=== PATIENT | female | born 1975 | race Caucasian/White ===

== ENCOUNTER 2017-06-28 16:06 | Emergency (ER) | payer SELFPAY ==
[~2017-06-28] VITALS: Ht 154.9 cm; Wt 66.0 kg
[~2017-06-28 16:06] MED LIST: AMIT25TA20 PO; LISI-363 PO; MOBI15TA PO; NEUR600T PO; OXYC1SOL5 PO; OXYC5 PO; TIZA4 PO
[2017-06-28 16:23] VITALS: BP 181/89; PULSE 122; RESP 26; TEMP 98.5; O2SAT 96
[2017-06-28] MEDS ORDERED: SODIUM CHLORIDE 0.9% FLUSH 10 ML FLUSH IVF PRN (16:30)
[2017-06-28 16:36] VITALS: O2SAT 91
--- NOTE | 2017-06-28 16:40 | PD ---
HPI Chief Complaint: OD/ Ingestion Time Seen by Provider: 16:29 Travel History International Travel<30 days: No Contact w/Intl Traveler<30days: No Traveled to known affect area: No History of Present Illness HPI 38-year-old female presents to emergency department after an overdose that occurred just prior to arrival. Patient states that she was driving her car and pulled over to snort heroin. He back found her unresponsive respirations for oxygen saturation of 54%. Patient states that this was the first time using heroin. Denies any other illicit or IV drugs. Patient states that she was on opiates for her chronic neck pain but decided to stop them approximately 6 months ago. 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 Currently patient denies fever, chills, chest pain, she missed of breath, abdominal pain. She has chronic neck pain and describes her pain 5 out of 5 worse with movement. PFSH Past Medical History Arthritis: Yes Cancer: No Cardiovascular Problems: Yes Diabetes: No Endocrine: No Genitourinary: No Hepatitis: No Hiatal Hernia: No Hypertension: Yes Immune Disorder: No Musculoskeletal: Yes ( BACK, NECK AND ARTHRITIS) Neurologic: Yes (NUMBNESS TINGLING LEFT ARM) Psychiatric: No Reproductive: No Respiratory: No Seizures: No Thyroid Disease: No ?: Not Tubal Ligation: Yes Past Surgical History Abdominal Surgery: No Cardiac Surgery: No Gynecologic Surgery: Yes (TUBAL LIGATION) Neurologic Surgery: No Other Surgery: Yes (tibal ligation) Social History Alcohol Use: Yes (OCCASSIONALLY) Tobacco Use: Yes (1/2 PPD) Substance Use: Yes (OPIATES, HEROINE TODAY) Allergies-Medications (Allergen,Severity, Reaction): Coded Allergies: penicillin G (Unverified Allergy, Severe, Anaphylaxis, 06/28/17) Reported Meds & Prescriptions Reported Meds & Active Scripts Active No Active Prescriptions or Reported Medications Review of Systems Except as stated in HPI: all other systems reviewed are Neg Physical Exam Narrative GENERAL: Well-developed well-nourished in mild distress, tearful SKIN: Focused skin assessment warm/dry. HEAD: Atraumatic. Normocephalic. EYES: Pupils equal and round. No scleral icterus. No injection or drainage. ENT: No nasal bleeding or discharge. Mucous membranes pink and moist. NECK: Trachea midline. No JVD. No midline tenderness CARDIOVASCULAR: Regular rate and rhythm. No murmur appreciated. RESPIRATORY: No accessory muscle use. Clear to auscultation. Breath sounds equal bilaterally. GASTROINTESTINAL: Abdomen soft, non-tender, nondistended. Hepatic and splenic margins not palpable. MUSCULOSKELETAL: No obvious deformities. No clubbing. No cyanosis. No edema. NEUROLOGICAL: Awake and alert. No obvious cranial nerve deficits. Motor grossly within normal limits. Normal speech. PSYCHIATRIC: Appropriate mood and affect; insight and judgment normal. Tearful. Data Data Last Documented VS Vital Signs Date Time Temp Pulse Resp B/P (MAP) Pulse Ox O2 Delivery O2 Flow Rate FiO2 06/28/17 20:57 06/28/17 19:45 110 14 98 Room Air 06/28/17 18:59 2.00 06/28/17 16:23 98.5 Orders Orders Complete Blood Count With Diff (06/28/17 16:30) Comprehensive Metabolic Panel (06/28/17 16:30) Urinalysis - C+S If Indicated (06/28/17 16:30) Chest, Single Ap (06/28/17 16:30) Iv Access Insert/Monitor (06/28/17 16:30) Ecg Monitoring (06/28/17 16:30) Oximetry (06/28/17 16:30) Sodium Chloride 0.9% Flush (Ns Flush) (06/28/17 16:30) Drug Screen, Random Urine (06/28/17 16:30) Alcohol (Ethanol) (06/28/17 16:30) Sodium Chlor 0.9% 1000 Ml Inj (Ns 1000 M (06/28/17 16:45) Ed Discharge Order (06/28/17 20:48) Labs Laboratory Tests Test 06/28/17 16:30 06/28/17 18:20 White Blood Count 6.2 TH/MM3 Red Blood Count 4.49 MIL/MM3 Hemoglobin 13.9 GM/DL Hematocrit 40.0 % Mean Corpuscular Volume 89.2 FL Mean Corpuscular Hemoglobin 30.9 PG Mean Corpuscular Hemoglobin Concent 34.7 % Red Cell Distribution Width 13.2 % Platelet Count 220 TH/MM3 Mean Platelet Volume 7.9 FL Neutrophils (%) (Auto) 61.7 % Lymphocytes (%) (Auto) 31.5 % Monocytes (%) (Auto) 4.8 % Eosinophils (%) (Auto) 1.1 % Basophils (%) (Auto) 0.9 % Neutrophils # (Auto) 3.8 TH/MM3 Lymphocytes # (Auto) 2.0 TH/MM3 Monocytes # (Auto) 0.3 TH/MM3 Eosinophils # (Auto) 0.1 TH/MM3 Basophils # (Auto) 0.1 TH/MM3 CBC Comment DIFF FINAL Differential Comment Blood Urea Nitrogen 20 MG/DL Creatinine 0.93 MG/DL Random Glucose 111 MG/DL Total Protein 7.5 GM/DL Albumin 3.8 GM/DL Calcium Level 8.8 MG/DL Alkaline Phosphatase 121 U/L Aspartate Amino Transf (AST/SGOT) 44 U/L Alanine Aminotransferase (ALT/SGPT) 59 U/L Total Bilirubin 0.3 MG/DL Sodium Level 141 MEQ/L Potassium Level 4.1 MEQ/L Chloride Level 109 MEQ/L Carbon Dioxide Level 26.8 MEQ/L Anion Gap 5 MEQ/L Estimat Glomerular Filtration Rate 66 ML/MIN Ethyl Alcohol Level 3 MG/DL Urine Color YELLOW Urine Turbidity CLEAR Urine pH 5.5 Urine Specific [place] 1.027 Urine Protein TRACE mg/dL Urine Glucose (UA) NEG mg/dL Urine Ketones NEG mg/dL Urine Occult Blood NEG Urine Nitrite NEG Urine Bilirubin NEG Urine Urobilinogen LESS THAN 2.0 MG/DL Urine Leukocyte Esterase NEG Urine RBC LESS THAN 1 /hpf Urine WBC 1 /hpf Urine Bacteria RARE /hpf Urine Hyaline Casts 33 /lpf Urine Mucus MANY /lpf Microscopic Urinalysis Comment CULT NOT INDICATED Urine Opiates Screen POS Urine Barbiturates Screen POS Urine Amphetamines Screen NEG Urine Benzodiazepines Screen POS Urine Cocaine Screen POS Urine Cannabinoids Screen NEG MDM Medical Decision Making Medical Screen Exam Complete: Yes Emergency Medical Condition: Yes Differential Diagnosis Overdose, suicidal ideations, MVC, drug abuse Narrative Course 38-year-old female presents to emergency department after an overdose that occurred just prior to arrival. Patient states that she was driving her car and pulled over to snort heroin. He back found her unresponsive respirations for oxygen saturation of 54%. Patient states that this was the first time using heroin. Denies any other illicit or IV drugs. Patient states that she was on opiates for her chronic neck pain but decided to stop them approximately 6 months ago. 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 Currently patient denies fever, chills, chest pain, she missed of breath, abdominal pain. She has chronic neck pain and describes her pain 5 out of 5 worse with movement. Upon arrival, pt was A+Ox3. Vital signs stable Laboratory Tests Test 06/28/17 16:30 06/28/17 18:20 White Blood Count 6.2 TH/MM3 Red Blood Count 4.49 MIL/MM3 Hemoglobin 13.9 GM/DL Hematocrit 40.0 % Mean Corpuscular Volume 89.2 FL Mean Corpuscular Hemoglobin 30.9 PG Mean Corpuscular Hemoglobin Concent 34.7 % Red Cell Distribution Width 13.2 % Platelet Count 220 TH/MM3 Mean Platelet Volume 7.9 FL Neutrophils (%) (Auto) 61.7 % Lymphocytes (%) (Auto) 31.5 % Monocytes (%) (Auto) 4.8 % Eosinophils (%) (Auto) 1.1 % Basophils (%) (Auto) 0.9 % Neutrophils # (Auto) 3.8 TH/MM3 Lymphocytes # (Auto) 2.0 TH/MM3 Monocytes # (Auto) 0.3 TH/MM3 Eosinophils # (Auto) 0.1 TH/MM3 Basophils # (Auto) 0.1 TH/MM3 CBC Comment DIFF FINAL Differential Comment Blood Urea Nitrogen 20 MG/DL Creatinine 0.93 MG/DL Random Glucose 111 MG/DL Total Protein 7.5 GM/DL Albumin 3.8 GM/DL Calcium Level 8.8 MG/DL Alkaline Phosphatase 121 U/L Aspartate Amino Transf (AST/SGOT) 44 U/L Alanine Aminotransferase (ALT/SGPT) 59 U/L Total Bilirubin 0.3 MG/DL Sodium Level 141 MEQ/L Potassium Level 4.1 MEQ/L Chloride Level 109 MEQ/L Carbon Dioxide Level 26.8 MEQ/L Anion Gap 5 MEQ/L Estimat Glomerular Filtration Rate 66 ML/MIN Ethyl Alcohol Level 3 MG/DL Urine Color YELLOW Urine Turbidity CLEAR Urine pH 5.5 Urine Specific [place] 1.027 Urine Protein TRACE mg/dL Urine Glucose (UA) NEG mg/dL Urine Ketones NEG mg/dL Urine Occult Blood NEG Urine Nitrite NEG Urine Bilirubin NEG Urine Urobilinogen LESS THAN 2.0 MG/DL Urine Leukocyte Esterase NEG Urine RBC LESS THAN 1 /hpf Urine WBC 1 /hpf Urine Bacteria RARE /hpf Urine Hyaline Casts 33 /lpf Urine Mucus MANY /lpf Microscopic Urinalysis Comment CULT NOT INDICATED Urine Opiates Screen POS Urine Barbiturates Screen POS Urine Amphetamines Screen NEG Urine Benzodiazepines Screen POS Urine Cocaine Screen POS Urine Cannabinoids Screen NEG UDS positive for opiates, barbiturates, benzos, and cocaine. Cocaine does explain the tachycardia. Labs otherwise stable. Last Impressions Chest X-Ray 06/28/17 1630 Signed Impressions: Service Date/Time: June 16:40 - CONCLUSION: 1. No acute cardiopulmonary disease. Dusty Carmen MD Reassessment demonstrates lethargy, sleepiness. Hypoxia and tachycardia occurs. Patient will remain in the emergency department until stable. 1946- Pt requests to go home. Pt stated she has a girlfriend who can pick her up. Vital signs stable. Patient is slightly tachycardic at 108. Again there is evidence of cocaine use. Patient denies chest pain, shortness of breath, or pain anywhere else. She understands the importance of follow-up with a primary care physician. She understands she needs return to emergency department for persistent or worsening symptoms. States she understands and will comply with directions. Diagnosis Primary Impression: Heroin overdose Qualified Codes: T40.1X1A - Poisoning by heroin, accidental (unintentional), initial encounter Additional Impression: Cocaine use Referrals: [facility] Additional Instructions: Follow-up with primary care physician within 2-3 days. Avoid heroin and other illicit drugs as they may cause . Also consider following up with a psychiatrist for evaluation of your drug use. Scripts No Active Prescriptions or Reported Meds Disposition: 01 DISCHARGE HOME Condition: Stable Tracie Yanez Jun 28, 2017 16:40
[2017-06-28] MEDS ORDERED: SODIUM CHLOR 0.9% 1000 ML INJ 1,000 ML IV ONE (16:45)
--- NOTE | 2017-06-28 16:52 | RADRPT ---
EXAM DATE/TIME: 06/28/2017 16:40 [facility] COMPARISON: No previous studies available for comparison. INDICATIONS : Possible syncopal episode; possible overdose. MEDICAL HISTORY : None. SURGICAL HISTORY : None. ENCOUNTER: Initial ACUITY: 1 day PAIN SCORE: 0/10 LOCATION: Bilateral chest FINDINGS: A single view of the chest demonstrates the lungs to be symmetrically aerated without evidence of mas s, infiltrate or effusion. The cardiomediastinal contours are unremarkable. Fixation hardware in the lower cervical spine. Osseous structures are intact. CONCLUSION: 1. No acute cardiopulmonary disease. Dusty Carmen MD on June 28, 2017 at 16:50 Board Certified Radiologist. This report was verified electronically.
[2017-06-28 17:11] LABS: AUTOMATED NEUTROPHIL # 3.8 TH/MM3 (1.8-7.7); BASOPHIL # 0.1 TH/MM3 (0-0.2); BASOPHIL % 0.9 % (0.0-2.0); EOSINOPHIL # 0.1 TH/MM3 (0-0.4); EOSINOPHIL % 1.1 % (0.0-4.0); HEMO FLAGS DIFF FINAL; LYMPH % 31.5 % (9.0-44.0); MEAN CELL VOLUME 89.2 FL (80.0-100.0); MEAN CORPUSCULAR HEMOGLOBIN 30.9 PG (27.0-34.0); MEAN CORPUSCULAR HGB CONC 34.7 % (32.0-36.0); MONO % 4.8 % (0.0-8.0); NEUT % 61.7 % (16.0-70.0); PLATELET COUNT 220 TH/MM3 (150-450); RED BLOOD COUNT 4.49 MIL/MM3 (4.00-5.30); RED CELL DISTRIBUTION WIDTH 13.2 % (11.6-17.2); WHITE BLOOD COUNT 6.2 TH/MM3 (4.0-11.0)
[2017-06-28 17:17] LABS: ANION GAP 5 MEQ/L (5-15); AST (GOT) 44 U/L (15-37); BICARBONATE 26.8 MEQ/L (21.0-32.0); BLOOD UREA NITROGEN 20 MG/DL (7-18); CHLORIDE 109 MEQ/L (98-107); GLOMERULAR FILTRATION RATE 66 ML/MIN (>89); POTASSIUM 4.1 MEQ/L (3.5-5.1); SODIUM (NA) 141 MEQ/L (136-145)
[2017-06-28 17:18] LABS: ALT (GPT) 59 U/L (10-53)
[2017-06-28 17:20] LABS: ALKALINE PHOSPHATASE 121 U/L (45-117); TOTAL BILIRUBIN ADULT 0.3 MG/DL (0.2-1.0)
[2017-06-28 17:21] LABS: ALCOHOL 3 MG/DL (0-5)
[2017-06-28 18:03] VITALS: BP 147/92; PULSE 103; RESP 10; RESP 16; O2SAT 92
[2017-06-28 18:46] LABS: BACTERIA, URINE RARE /hpf; BLOOD, URINE NEG (NEG); COMMENT (UR) CULT NOT INDICATED; CULTURE IF INDICATED CULT NOT INDICATED; GLUCOSE,URINE NEG (NEG); HYALINE CAST, URINE 33 /lpf (RARE); KETONE, URINE NEG (NEG); MUCUS URINE MANY /lpf (OCC); NITRITE,URINE NEG (NEG); PH, URINE 5.5 (5.0-8.5); URINE COLOR YELLOW (YELLW/STRAW)
[2017-06-28 18:57] VITALS: BP 158/101; PULSE 105; RESP 14; O2SAT 95
[2017-06-28 19:45] VITALS: BP 152/95; PULSE 110; RESP 14; O2SAT 98
== END 2017-06-28 21:05 | disposition home or self-care (01) ==
LOC: NEPE 16:06
DX: T40.1X1A Poisoning by heroin, accidental (unintentional), initial encounter (principal); F14.90 Cocaine use, unspecified, uncomplicated; I10 Essential (primary) hypertension; M46.92 Unspecified inflammatory spondylopathy, cervical region; F17.210 Nicotine dependence, cigarettes, uncomplicated
CPT/HCPCS: 71010; 80053; 80307; 81001; 85025; 99285; J7030

== ENCOUNTER 2018-05-05 19:02 | Inpatient (IN) ==
[2018-05-05] MEDS ORDERED: Naloxone Inj 0.4 MG/ML Vial ONE (19:25)
[2018-05-05] MEDS ORDERED: Naloxone Inj 2 MG/2 ML Vial IV.PUSH ONE (19:29)
[2018-05-05 19:57] LABS: Baso % (Auto) 0.5 % (0.0-2.0); Eos % (Auto) 0.2 % (0.0-4.0); Hematocrit 43.3 % (35.0-46.0); Hemoglobin 14.2 gm/dL (11.6-15.3); Lymph # (Auto) 0.8 th/mm3 (1.0-4.8); Lymph % (Auto) 8.6 % (9.0-44.0); Mean Corpuscular HGB Conc 32.8 % (32.0-36.0); Mean Corpuscular Volume 94.4 fL (80.0-100.0); Mean Platelet Volume 8.2 fL (7.0-11.0); Mono # (Auto) 0.6 th/mm3 (0.0-0.9); Mono % (Auto) 6.1 % (0.0-8.0); Neut # (Auto) 8.2 th/mm3 (1.8-7.7); Neut % (Auto) 84.6 % (16.0-70.0); Platelet Count 215 th/mm3 (150-450); Red Blood Count 4.58 mil/mm3 (4.00-5.30); Red Cell Distribution Width 13.6 % (11.6-17.2); White Blood Count 9.7 th/mm3 (4.0-11.0)
--- NOTE | 2018-05-05 20:04 | XR ---
EXAM DATE: 05/05/2018 7:29 PM EDT AGE/SEX: 42 years / Female INDICATIONS: Dyspnea. CLINICAL DATA: This is the patient's initial encounter. Patient reports that signs and symptoms have been present for 1 day and indicates a pain score of 0/10. MEDICAL/SURGICAL HISTORY: None. None. COMPARISON: [facility] [place], CHEST SINGLE AP, 06/28/2017. . FINDINGS: Lungs are under aerated. Mild interstitial edema is present. There is no pneumothorax or pleural effu ghazala. Mild gaseous distention of the stomach. CONCLUSION: Under aerated with mild interstitial edema. Electronically signed by: Juan Stephenson MD 05/05/2018 8:03 PM EDT
[2018-05-05 20:09] LABS: Anion Gap 13 meq/L (5-15)
[2018-05-05 20:11] LABS: Alanine Aminotransferase 83 U/L (10-53); Albumin 4.3 g/dL (3.4-5.0); Aspartate Aminotransferase 143 U/L (15-37); Blood Urea Nitrogen 25 mg/dL (7-18); Chloride 103 meq/L (98-107); Glomerular Filtration Rate 20 mL/min (>89); Glucose,Random 116 mg/dL (74-106); Sodium 142 meq/L (136-145)
[2018-05-05 20:19] LABS: Alkaline Phosphatase 151 U/L (45-117); Total Protein 8.5 g/dL (6.4-8.2)
[2018-05-05] MEDS ORDERED: Sod Chloride 0.9% Inj 1,000 ML IV.SIG SCH ×3 (20:30→21:00)
[2018-05-05 20:43] LABS: ABG Base Excess -3.4 mmol/L (-2-2); ABG PCO2 56 mmHg (38-42); ABG PO2 78 mmHg (61-120)
[2018-05-05 20:50] LABS: Creatine Kinase 2351 U/L (26-192)
[2018-05-05 21:02] LABS: CKMB Percent 0.9 % (0.0-4.0); Creatine Kinase MB 21.5 ng/mL (0.5-3.6)
--- NOTE | 2018-05-05 21:03 | ED ---
HPI General Chief complaint: Overdose Stated complaint: Psych Eval-VCSO Time Seen by Provider: 05/05/18 19:25 Source: EMS Mode of arrival: EMS Limitations: altered mental status History of Present Illness HPI narrative: 42-year-old female came to the emergency room with history of being found unresponsive on her couch with emesis around by her mother. As per the mother patient has history of overdose in the past. When the police arrived patient was altered mental status and groggy. She was refusing any medical care. Based on this health officer Sirena acted her. EMS brought her in. Patient had admitted to overdose on heroin, cocaine and Xanax. Patient did not receive any medications en route. Her oxygen saturation was 84% on room air upon arrival. Upon putting nasal cannula it went up to mid 90s. Patient try to answer my question again being quite lethargic. She was not making too much sense and words were incomprehensible. No family is around her. Onset (ago): unknown Related Data Home Medications Medication Instructions Recorded Confirmed No Known Home Medications 05/05/18 05/05/18 Unable to Obtain Home Meds 05/05/18 05/05/18 Allergies Allergy/AdvReac Type Severity Reaction Status Date / Time penicillin G Allergy Severe Anaphylaxis Unverified 06/28/17 16:29 Review of Systems ROS Unobtainable ROS Unobtainable: unobtainable due to mental status ROS: all other systems reviewed are negative Psychiatric Reports depression [facility] Medical History Medical History Medical history unknown (Acute) Surgical history unknown (Acute) Social History Social History Substance History: Active Abuse Second Hand Smoke Exposure: Yes Smoking Status: Current every day smoker Tobacco Type: Cigarettes How Often Do You Have a Drink Containing Alcohol: 4 or more times a week Recent Travel in [facility] within the Last 8 Weeks: No Recent Out of Country Travel within the Last 8 Weeks: No Substance Abuse Detail Opiates: Substance Use Status: Active Immunization History Tetanus Immunization: >5 Years Exam Narrative Exam Narrative: GENERAL: Lethargic, extremely slurred speech, moderate distress SKIN: Focused skin assessment warm/dry. HEAD: Atraumatic. Normocephalic. EYES: Pupils equal and round. No scleral icterus. No injection or drainage. ENT: No nasal bleeding or discharge. Dry mucous membranes NECK: Trachea midline. No JVD. CARDIOVASCULAR: Regular rate and rhythm. No murmur appreciated. RESPIRATORY: No accessory muscle use. Clear to auscultation. Breath sounds equal bilaterally. GASTROINTESTINAL: Abdomen soft, non-tender, nondistended. Hepatic and splenic margins not palpable. MUSCULOSKELETAL: No obvious deformities. No clubbing. No cyanosis. No edema. NEUROLOGICAL: Awake and alert. No obvious cranial nerve deficits. Motor grossly within normal limits. Normal speech. PSYCHIATRIC: Appropriate mood and affect; insight and judgment normal. Course Reevaluation(s) Reevaluation #1: Patient was given 1 mg of Narcan that aroused her slightly. She was still quite groggy. But she was answering questions a little more appropriately at this point. She said that she had snorted heroin, cocaine and Xanax today. Upon asking the purpose of doing this she said it was intentional since she has been very sad. Her father and her brother both 1 week apart on August. The pulse ox was difficult to obtain and I asked the respiratory therapist for a blood gas. The blood gas is suggestive of respiratory acidosis. Based on this I have ordered BiPAP. Blood test otherwise shows acute renal failure and rhabdomyolysis. I have ordered 2 L of IV fluid bolus at this point. Patient given these multiple critical issues should go to the ICU in my opinion. Awaiting for the cutting table operator first to call back. Time: 20:59 Initial Documented Vital Signs Temperature 98.4 F 05/05/18 19:29 Pulse Rate 86 05/05/18 19:29 Respiratory Rate 14 05/05/18 19:29 Blood Pressure 112/78 05/05/18 19:29 Pulse Oximetry 86 L 05/05/18 19:29 Last Documented Vital Signs Temperature 98.0 F 05/09/18 08:00 Pulse Rate 81 05/09/18 10:00 Respiratory Rate 23 05/09/18 08:00 Blood Pressure 149/77 H 05/09/18 08:00 Pulse Oximetry 93 L 05/09/18 08:00 Critical Care Time Critical Care Time: Yes Total Critical Care Time: 45 Attestation: Aggregate critical care time was 45 minutes. Time to perform other separately billable procedures was not included in the critical care time. My time did not include minutes spent treating any other patients simultaneously or on activities that did not directly contribute to the patient's treatment. The services I provided to this patient were to treat and/or prevent clinically significant deterioration that could result in: Respiratory depression, altered mental status, polysubstance abuse, major depression, acute renal failure, rhabdomyolysis I provided critical care services requiring my management, as noted below: Chart data review, documentation time, medication orders and management, vital sign assessments/reviewing monitor data, ordering and reviewing lab tests, ordering and interpreting/reviewing x-rays and diagnostic studies, care of the patient and discussion of the patient with the admitting physicians. Medical Decision Making MDM Narrative Medical decision making narrative: Awaiting to speak with the cutting table operator first. Medical Screen Exam Complete: Yes Emergency Medical Condition: Yes Lab Data Result diagrams: 05/08/18 05:45 05/09/18 03:30 Lab Results 05/05/18 05/05/18 05/05/18 Range/Units 19:45 19:45 19:45 WBC 9.7 (4.0-11.0) th/mm3 RBC 4.58 (4.00-5.30) mil/mm3 Hgb 14.2 (11.6-15.3) gm/dL Hct 43.3 (35.0-46.0) % MCV 94.4 (80.0-100.0) fL MCH 31.0 (27.0-34.0) pg MCHC 32.8 (32.0-36.0) % RDW 13.6 (11.6-17.2) % Plt Count 215 (150-450) th/mm3 MPV 8.2 (7.0-11.0) fL Neut % (Auto) 84.6 H (16.0-70.0) % Lymph % (Auto) 8.6 L (9.0-44.0) % Forrest % (Auto) 6.1 (0.0-8.0) % Eos % (Auto) 0.2 (0.0-4.0) % Baso % (Auto) 0.5 (0.0-2.0) % Neut # (Auto) 8.2 H (1.8-7.7) th/mm3 Lymph # (Auto) 0.8 L (1.0-4.8) th/mm3 Forrest # (Auto) 0.6 (0.0-0.9) th/mm3 Eos # (Auto) 0.0 (0.0-0.4) th/mm3 Baso # (Auto) 0.0 (0.0-0.2) th/mm3 WBC Differential . Differential Comment Auto diff final D-Dimer Quant (PE/DVT) (0.00-0.50) mg/L FEU Puncture Site Patient Temperature O2 Saturation (90-100) % ABG pH (7.380-7.420) ABG pCO2 (38-42) mmHg ABG pO2 (61-120) mmHg ABG HCO3 (22-26) mmol/L ABG O2 Content (12.0-20.0) Vol % ABG Base Excess (-2-2) mmol/L ABG Methemoglobin (0-2) % Hemoglobin (12.0-16.0) G/DL Carboxyhemoglobin (0-4) % O2 Delivery Device Liter Flow L/M Critical Value Sodium 142 (136-145) meq/L Potassium 5.0 (3.5-5.1) meq/L Chloride 103 (98-107) meq/L Carbon Dioxide 26.0 (21.0-32.0) meq/L Anion Gap 13 (5-15) meq/L BUN 25 H (7-18) mg/dL Creatinine 2.60 H (0.50-1.00) mg/dL Estimated GFR 20 L (>89) mL/min Random Glucose 116 H (74-106) mg/dL Hemoglobin A1c (4.3-6.0) % Lactic Acid (0.4-2.0) mmol/L Calcium 9.0 (8.5-10.1) mg/dL Phosphorus (2.5-4.9) mg/dL Magnesium (1.5-2.5) mg/dL Total Bilirubin 0.3 (0.2-1.0) mg/dL AST 143 H (15-37) U/L ALT 83 H (10-53) U/L Alkaline Phosphatase 151 H (45-117) U/L Total Creatine Kinase (26-192) U/L CK-MB (CK-2) (0.5-3.6) ng/mL CK-MB (CK-2) % (0.0-4.0) % Troponin I (0.02-0.05) ng/mL Total Protein 8.5 H (6.4-8.2) g/dL Albumin 4.3 (3.4-5.0) g/dL TSH 3.080 (0.358-3.740) uIU/mL Free T4 (0.76-1.46) ng/dL Beta HCG, Qual Less than 1.0 (0-5) mIU/mL Urine Color (Yellw/Straw) Urine Clarity (Clear) Urine pH (5.0-8.5) Ur Specific [place] (1.002-1.035) Urine Protein (Neg-Trace) mg/dL Urine Glucose (UA) (Negative) mg/dL Urine Ketones (Negative) mg/dL Urine Occult Blood (Negative) Urine Nitrate (Negative) Urine Bilirubin (Negative) Urine Urobilinogen (Less than 2) mg/dL Ur Leukocyte Esterase (Negative) Urine RBC (0-3) /hpf Urine WBC (0-5) /hpf Ur Squamous Epith Cells (0-5) /hpf Amorphous Sediment (None) /hpf Hyaline Casts (0-3) /lpf Urine Mucus (Occasional) /lpf Micro UA Comment Ur Microscopic Review Urine Culture Comments Nasal Screen MRSA (PCR) (Negative) Salicylates 2.5 L (2.8-20.0) mg/dL Urine Opiates Screen (Neg) Acetaminophen Less than 2.0 L (10.0-30.0) mcg/mL Ur Barbiturates Screen (Neg) Ur Amphetamines Screen (Neg) U Benzodiazepines Scrn (Neg) Urine Cocaine Screen (Neg) U Cannabinoids Screen (Neg) Serum Alcohol Less than 3 (0-5) mg/dL 05/05/18 05/05/18 05/05/18 Range/Units 19:45 20:23 20:35 WBC (4.0-11.0) th/mm3 RBC (4.00-5.30) mil/mm3 Hgb (11.6-15.3) gm/dL Hct (35.0-46.0) % MCV (80.0-100.0) fL MCH (27.0-34.0) pg MCHC (32.0-36.0) % RDW (11.6-17.2) % Plt Count (150-450) th/mm3 MPV (7.0-11.0) fL Neut % (Auto) (16.0-70.0) % Lymph % (Auto) (9.0-44.0) % Forrest % (Auto) (0.0-8.0) % Eos % (Auto) (0.0-4.0) % Baso % (Auto) (0.0-2.0) % Neut # (Auto) (1.8-7.7) th/mm3 Lymph # (Auto) (1.0-4.8) th/mm3 Forrest # (Auto) (0.0-0.9) th/mm3 Eos # (Auto) (0.0-0.4) th/mm3 Baso # (Auto) (0.0-0.2) th/mm3 WBC Differential Differential Comment D-Dimer Quant (PE/DVT) 4.24 H (0.00-0.50) mg/L FEU Puncture Site Right brachial Patient Temperature 98.6 O2 Saturation 92 (90-100) % ABG pH 7.24 L* (7.380-7.420) ABG pCO2 56 H* (38-42) mmHg ABG pO2 78 (61-120) mmHg ABG HCO3 23 (22-26) mmol/L ABG O2 Content 17.7 (12.0-20.0) Vol % ABG Base Excess -3.4 L (-2-2) mmol/L ABG Methemoglobin 0.9 (0-2) % Hemoglobin 13.7 (12.0-16.0) G/DL Carboxyhemoglobin 2.5 (0-4) % O2 Delivery Device Nasal cannula Liter Flow 2.00 L/M Critical Value Yes Sodium (136-145) meq/L Potassium (3.5-5.1) meq/L Chloride (98-107) meq/L Carbon Dioxide (21.0-32.0) meq/L Anion Gap (5-15) meq/L BUN (7-18) mg/dL Creatinine (0.50-1.00) mg/dL Estimated GFR (>89) mL/min Random Glucose (74-106) mg/dL Hemoglobin A1c (4.3-6.0) % Lactic Acid (0.4-2.0) mmol/L Calcium (8.5-10.1) mg/dL Phosphorus (2.5-4.9) mg/dL Magnesium (1.5-2.5) mg/dL Total Bilirubin (0.2-1.0) mg/dL AST (15-37) U/L ALT (10-53) U/L Alkaline Phosphatase (45-117) U/L Total Creatine Kinase 2351 H (26-192) U/L CK-MB (CK-2) 21.5 H (0.5-3.6) ng/mL CK-MB (CK-2) % 0.9 (0.0-4.0) % Troponin I Less than 0.02 L (0.02-0.05) ng/mL Total Protein (6.4-8.2) g/dL Albumin (3.4-5.0) g/dL TSH (0.358-3.740) uIU/mL Free T4 (0.76-1.46) ng/dL Beta HCG, Qual (0-5) mIU/mL Urine Color (Yellw/Straw) Urine Clarity (Clear) Urine pH (5.0-8.5) Ur Specific [place] (1.002-1.035) Urine Protein (Neg-Trace) mg/dL Urine Glucose (UA) (Negative) mg/dL Urine Ketones (Negative) mg/dL Urine Occult Blood (Negative) Urine Nitrate (Negative) Urine Bilirubin (Negative) Urine Urobilinogen (Less than 2) mg/dL Ur Leukocyte Esterase (Negative) Urine RBC (0-3) /hpf Urine WBC (0-5) /hpf Ur Squamous Epith Cells (0-5) /hpf Amorphous Sediment (None) /hpf Hyaline Casts (0-3) /lpf Urine Mucus (Occasional) /lpf Micro UA Comment Ur Microscopic Review Urine Culture Comments Nasal Screen MRSA (PCR) (Negative) Salicylates (2.8-20.0) mg/dL Urine Opiates Screen (Neg) Acetaminophen (10.0-30.0) mcg/mL Ur Barbiturates Screen (Neg) Ur Amphetamines Screen (Neg) U Benzodiazepines Scrn (Neg) Urine Cocaine Screen (Neg) U Cannabinoids Screen (Neg) Serum Alcohol (0-5) mg/dL 05/05/18 05/05/18 05/05/18 Range/Units 21:44 21:44 22:52 WBC (4.0-11.0) th/mm3 RBC (4.00-5.30) mil/mm3 Hgb (11.6-15.3) gm/dL Hct (35.0-46.0) % MCV (80.0-100.0) fL MCH (27.0-34.0) pg MCHC (32.0-36.0) % RDW (11.6-17.2) % Plt Count (150-450) th/mm3 MPV (7.0-11.0) fL Neut % (Auto) (16.0-70.0) % Lymph % (Auto) (9.0-44.0) % Forrest % (Auto) (0.0-8.0) % Eos % (Auto) (0.0-4.0) % Baso % (Auto) (0.0-2.0) % Neut # (Auto) (1.8-7.7) th/mm3 Lymph # (Auto) (1.0-4.8) th/mm3 Forrest # (Auto) (0.0-0.9) th/mm3 Eos # (Auto) (0.0-0.4) th/mm3 Baso # (Auto) (0.0-0.2) th/mm3 WBC Differential Differential Comment D-Dimer Quant (PE/DVT) (0.00-0.50) mg/L FEU Puncture Site Patient Temperature O2 Saturation (90-100) % ABG pH (7.380-7.420) ABG pCO2 (38-42) mmHg ABG pO2 (61-120) mmHg ABG HCO3 (22-26) mmol/L ABG O2 Content (12.0-20.0) Vol % ABG Base Excess (-2-2) mmol/L ABG Methemoglobin (0-2) % Hemoglobin (12.0-16.0) G/DL Carboxyhemoglobin (0-4) % O2 Delivery Device Liter Flow L/M Critical Value Sodium (136-145) meq/L Potassium (3.5-5.1) meq/L Chloride (98-107) meq/L Carbon Dioxide (21.0-32.0) meq/L Anion Gap (5-15) meq/L BUN (7-18) mg/dL Creatinine (0.50-1.00) mg/dL Estimated GFR (>89) mL/min Random Glucose (74-106) mg/dL Hemoglobin A1c (4.3-6.0) % Lactic Acid (0.4-2.0) mmol/L Calcium (8.5-10.1) mg/dL Phosphorus (2.5-4.9) mg/dL Magnesium (1.5-2.5) mg/dL Total Bilirubin (0.2-1.0) mg/dL AST (15-37) U/L ALT (10-53) U/L Alkaline Phosphatase (45-117) U/L Total Creatine Kinase (26-192) U/L CK-MB (CK-2) (0.5-3.6) ng/mL CK-MB (CK-2) % (0.0-4.0) % Troponin I (0.02-0.05) ng/mL Total Protein (6.4-8.2) g/dL Albumin (3.4-5.0) g/dL TSH (0.358-3.740) uIU/mL Free T4 (0.76-1.46) ng/dL Beta HCG, Qual (0-5) mIU/mL Urine Color Yellow (Yellw/Straw) Urine Clarity Hazy H (Clear) Urine pH 5.0 (5.0-8.5) Ur Specific [place] 1.019 (1.002-1.035) Urine Protein 100 H (Neg-Trace) mg/dL Urine Glucose (UA) Negative (Negative) mg/dL Urine Ketones Trace H (Negative) mg/dL Urine Occult Blood Large H (Negative) Urine Nitrate Negative (Negative) Urine Bilirubin Negative (Negative) Urine Urobilinogen Less than 2 (Less than 2) mg/dL Ur Leukocyte Esterase Negative (Negative) Urine RBC 4 H (0-3) /hpf Urine WBC 5 (0-5) /hpf Ur Squamous Epith Cells 1 (0-5) /hpf Amorphous Sediment Few H (None) /hpf Hyaline Casts 3 (0-3) /lpf Urine Mucus Few H (Occasional) /lpf Micro UA Comment Cath-culture not ind Ur Microscopic Review Not Reportable Urine Culture Comments Cath-cult not ind Nasal Screen MRSA (PCR) Not detected (Negative) Salicylates (2.8-20.0) mg/dL Urine Opiates Screen Neg (Neg) Acetaminophen (10.0-30.0) mcg/mL Ur Barbiturates Screen Neg (Neg) Ur Amphetamines Screen Neg (Neg) U Benzodiazepines Scrn Pos H (Neg) Urine Cocaine Screen Pos H (Neg) U Cannabinoids Screen Neg (Neg) Serum Alcohol (0-5) mg/dL 05/06/18 05/06/18 05/06/18 Range/Units 04:38 04:38 04:38 WBC 8.2 (4.0-11.0) th/mm3 RBC 4.01 (4.00-5.30) mil/mm3 Hgb 12.7 (11.6-15.3) gm/dL Hct 37.2 (35.0-46.0) % MCV 92.8 (80.0-100.0) fL MCH 31.7 (27.0-34.0) pg MCHC 34.2 (32.0-36.0) % RDW 13.6 (11.6-17.2) % Plt Count 166 (150-450) th/mm3 MPV 8.2 (7.0-11.0) fL Neut % (Auto) 79.7 H (16.0-70.0) % Lymph % (Auto) 13.6 (9.0-44.0) % Forrest % (Auto) 6.4 (0.0-8.0) % Eos % (Auto) 0.0 (0.0-4.0) % Baso % (Auto) 0.3 (0.0-2.0) % Neut # (Auto) 6.6 (1.8-7.7) th/mm3 Lymph # (Auto) 1.1 (1.0-4.8) th/mm3 Forrest # (Auto) 0.5 (0.0-0.9) th/mm3 Eos # (Auto) 0.0 (0.0-0.4) th/mm3 Baso # (Auto) 0.0 (0.0-0.2) th/mm3 WBC Differential . Differential Comment Auto diff final D-Dimer Quant (PE/DVT) (0.00-0.50) mg/L FEU Puncture Site Patient Temperature O2 Saturation (90-100) % ABG pH (7.380-7.420) ABG pCO2 (38-42) mmHg ABG pO2 (61-120) mmHg ABG HCO3 (22-26) mmol/L ABG O2 Content (12.0-20.0) Vol % ABG Base Excess (-2-2) mmol/L ABG Methemoglobin (0-2) % Hemoglobin (12.0-16.0) G/DL Carboxyhemoglobin (0-4) % O2 Delivery Device Liter Flow L/M Critical Value Sodium 140 (136-145) meq/L Potassium 4.9 (3.5-5.1) meq/L Chloride 110 H (98-107) meq/L Carbon Dioxide 24.6 (21.0-32.0) meq/L Anion Gap 5 (5-15) meq/L BUN 18 (7-18) mg/dL Creatinine 1.08 H (0.50-1.00) mg/dL Estimated GFR 55 L (>89) mL/min Random Glucose 103 (74-106) mg/dL Hemoglobin A1c (4.3-6.0) % Lactic Acid 1.2 (0.4-2.0) mmol/L Calcium 7.6 L D (8.5-10.1) mg/dL Phosphorus (2.5-4.9) mg/dL Magnesium (1.5-2.5) mg/dL Total Bilirubin 0.2 (0.2-1.0) mg/dL AST 240 H (15-37) U/L ALT 93 H (10-53) U/L Alkaline Phosphatase 92 (45-117) U/L Total Creatine Kinase 7321 H (26-192) U/L CK-MB (CK-2) 117.6 H (0.5-3.6) ng/mL CK-MB (CK-2) % 1.6 (0.0-4.0) % Troponin I (0.02-0.05) ng/mL Total Protein 6.4 D (6.4-8.2) g/dL Albumin 3.5 D (3.4-5.0) g/dL TSH (0.358-3.740) uIU/mL Free T4 (0.76-1.46) ng/dL Beta HCG, Qual (0-5) mIU/mL Urine Color (Yellw/Straw) Urine Clarity (Clear) Urine pH (5.0-8.5) Ur Specific [place] (1.002-1.035) Urine Protein (Neg-Trace) mg/dL Urine Glucose (UA) (Negative) mg/dL Urine Ketones (Negative) mg/dL Urine Occult Blood (Negative) Urine Nitrate (Negative) Urine Bilirubin (Negative) Urine Urobilinogen (Less than 2) mg/dL Ur Leukocyte Esterase (Negative) Urine RBC (0-3) /hpf Urine WBC (0-5) /hpf Ur Squamous Epith Cells (0-5) /hpf Amorphous Sediment (None) /hpf Hyaline Casts (0-3) /lpf Urine Mucus (Occasional) /lpf Micro UA Comment Ur Microscopic Review Urine Culture Comments Nasal Screen MRSA (PCR) (Negative) Salicylates (2.8-20.0) mg/dL Urine Opiates Screen (Neg) Acetaminophen (10.0-30.0) mcg/mL Ur Barbiturates Screen (Neg) Ur Amphetamines Screen (Neg) U Benzodiazepines Scrn (Neg) Urine Cocaine Screen (Neg) U Cannabinoids Screen (Neg) Serum Alcohol (0-5) mg/dL 05/07/18 05/07/18 05/07/18 Range/Units 06:33 06:33 06:33 WBC 5.6 (4.0-11.0) th/mm3 RBC 3.85 L (4.00-5.30) mil/mm3 Hgb 12.1 (11.6-15.3) gm/dL Hct 35.4 (35.0-46.0) % MCV 91.9 (80.0-100.0) fL MCH 31.5 (27.0-34.0) pg MCHC 34.3 (32.0-36.0) % RDW 13.7 (11.6-17.2) % Plt Count 154 (150-450) th/mm3 MPV 8.6 (7.0-11.0) fL Neut % (Auto) 67.0 (16.0-70.0) % Lymph % (Auto) 25.3 (9.0-44.0) % [place] % (Auto) 5.7 (0.0-8.0) % Eos % (Auto) 1.1 (0.0-4.0) % Baso % (Auto) 0.9 (0.0-2.0) % Neut # (Auto) 3.7 (1.8-7.7) th/mm3 Lymph # (Auto) 1.4 (1.0-4.8) th/mm3 [place] # (Auto) 0.3 (0.0-0.9) th/mm3 Eos # (Auto) 0.1 (0.0-0.4) th/mm3 Baso # (Auto) 0.0 (0.0-0.2) th/mm3 WBC Differential . Differential Comment Auto diff final D-Dimer Quant (PE/DVT) (0.00-0.50) mg/L FEU Puncture Site Patient Temperature O2 Saturation (90-100) % ABG pH (7.380-7.420) ABG pCO2 (38-42) mmHg ABG pO2 (61-120) mmHg ABG HCO3 (22-26) mmol/L ABG O2 Content (12.0-20.0) Vol % ABG Base Excess (-2-2) mmol/L ABG Methemoglobin (0-2) % Hemoglobin (12.0-16.0) G/DL Carboxyhemoglobin (0-4) % O2 Delivery Device Liter Flow L/M Critical Value Sodium 144 (136-145) meq/L Potassium 3.5 D (3.5-5.1) meq/L Chloride 111 H (98-107) meq/L Carbon Dioxide 25.5 (21.0-32.0) meq/L Anion Gap 8 (5-15) meq/L BUN 6 L (7-18) mg/dL Creatinine 0.72 (0.50-1.00) mg/dL Estimated GFR 88 L (>89) mL/min Random Glucose 98 (74-106) mg/dL Hemoglobin A1c 5.7 (4.3-6.0) % Lactic Acid (0.4-2.0) mmol/L Calcium 7.9 L (8.5-10.1) mg/dL Phosphorus 1.0 L (2.5-4.9) mg/dL Magnesium 2.1 (1.5-2.5) mg/dL Total Bilirubin 0.2 (0.2-1.0) mg/dL AST 275 H (15-37) U/L ALT 113 H (10-53) U/L Alkaline Phosphatase 73 (45-117) U/L Total Creatine Kinase 6946 H (26-192) U/L CK-MB (CK-2) 40.3 H (0.5-3.6) ng/mL CK-MB (CK-2) % 0.6 (0.0-4.0) % Troponin I (0.02-0.05) ng/mL Total Protein 5.9 L (6.4-8.2) g/dL Albumin 3.2 L (3.4-5.0) g/dL TSH 0.857 (0.358-3.740) uIU/mL Free T4 0.79 (0.76-1.46) ng/dL Beta HCG, Qual (0-5) mIU/mL Urine Color (Yellw/Straw) Urine Clarity (Clear) Urine pH (5.0-8.5) Ur Specific [place] (1.002-1.035) Urine Protein (Neg-Trace) mg/dL Urine Glucose (UA) (Negative) mg/dL Urine Ketones (Negative) mg/dL Urine Occult Blood (Negative) Urine Nitrate (Negative) Urine Bilirubin (Negative) Urine Urobilinogen (Less than 2) mg/dL Ur Leukocyte Esterase (Negative) Urine RBC (0-3) /hpf Urine WBC (0-5) /hpf Ur Squamous Epith Cells (0-5) /hpf Amorphous Sediment (None) /hpf Hyaline Casts (0-3) /lpf Urine Mucus (Occasional) /lpf Micro UA Comment Ur Microscopic Review Urine Culture Comments Nasal Screen MRSA (PCR) (Negative) Salicylates (2.8-20.0) mg/dL Urine Opiates Screen (Neg) Acetaminophen (10.0-30.0) mcg/mL Ur Barbiturates Screen (Neg) Ur Amphetamines Screen (Neg) U Benzodiazepines Scrn (Neg) Urine Cocaine Screen (Neg) U Cannabinoids Screen (Neg) Serum Alcohol (0-5) mg/dL 05/08/18 05/08/18 05/08/18 Range/Units 05:45 05:45 05:45 WBC 4.6 (4.0-11.0) th/mm3 RBC 3.97 L (4.00-5.30) mil/mm3 Hgb 12.4 (11.6-15.3) gm/dL Hct 36.0 (35.0-46.0) % MCV 90.8 (80.0-100.0) fL MCH 31.3 (27.0-34.0) pg MCHC 34.5 (32.0-36.0) % RDW 13.8 (11.6-17.2) % Plt Count 161 (150-450) th/mm3 MPV 7.9 (7.0-11.0) fL Neut % (Auto) 63.4 (16.0-70.0) % Lymph % (Auto) 28.0 (9.0-44.0) % [place] % (Auto) 6.6 (0.0-8.0) % Eos % (Auto) 1.1 (0.0-4.0) % Baso % (Auto) 0.9 (0.0-2.0) % Neut # (Auto) 2.9 (1.8-7.7) th/mm3 Lymph # (Auto) 1.3 (1.0-4.8) th/mm3 [place] # (Auto) 0.3 (0.0-0.9) th/mm3 Eos # (Auto) 0.1 (0.0-0.4) th/mm3 Baso # (Auto) 0.0 (0.0-0.2) th/mm3 WBC Differential . Differential Comment Auto diff final D-Dimer Quant (PE/DVT) (0.00-0.50) mg/L FEU Puncture Site Patient Temperature O2 Saturation (90-100) % ABG pH (7.380-7.420) ABG pCO2 (38-42) mmHg ABG pO2 (61-120) mmHg ABG HCO3 (22-26) mmol/L ABG O2 Content (12.0-20.0) Vol % ABG Base Excess (-2-2) mmol/L ABG Methemoglobin (0-2) % Hemoglobin (12.0-16.0) G/DL Carboxyhemoglobin (0-4) % O2 Delivery Device Liter Flow L/M Critical Value Sodium 146 H (136-145) meq/L Potassium 3.5 (3.5-5.1) meq/L Chloride 113 H (98-107) meq/L Carbon Dioxide 27.1 (21.0-32.0) meq/L Anion Gap 6 (5-15) meq/L BUN 4 L (7-18) mg/dL Creatinine 0.77 (0.50-1.00) mg/dL Estimated GFR 81 L (>89) mL/min Random Glucose 92 (74-106) mg/dL Hemoglobin A1c 5.5 (4.3-6.0) % Lactic Acid (0.4-2.0) mmol/L Calcium 8.3 L (8.5-10.1) mg/dL Phosphorus 1.6 L (2.5-4.9) mg/dL Magnesium 2.1 (1.5-2.5) mg/dL Total Bilirubin 0.4 (0.2-1.0) mg/dL AST 239 H (15-37) U/L ALT 118 H (10-53) U/L Alkaline Phosphatase 81 (45-117) U/L Total Creatine Kinase (26-192) U/L CK-MB (CK-2) (0.5-3.6) ng/mL CK-MB (CK-2) % (0.0-4.0) % Troponin I (0.02-0.05) ng/mL Total Protein 6.6 D (6.4-8.2) g/dL Albumin 3.3 L (3.4-5.0) g/dL TSH (0.358-3.740) uIU/mL Free T4 0.81 (0.76-1.46) ng/dL Beta HCG, Qual (0-5) mIU/mL Urine Color (Yellw/Straw) Urine Clarity (Clear) Urine pH (5.0-8.5) Ur Specific [place] (1.002-1.035) Urine Protein (Neg-Trace) mg/dL Urine Glucose (UA) (Negative) mg/dL Urine Ketones (Negative) mg/dL Urine Occult Blood (Negative) Urine Nitrate (Negative) Urine Bilirubin (Negative) Urine Urobilinogen (Less than 2) mg/dL Ur Leukocyte Esterase (Negative) Urine RBC (0-3) /hpf Urine WBC (0-5) /hpf Ur Squamous Epith Cells (0-5) /hpf Amorphous Sediment (None) /hpf Hyaline Casts (0-3) /lpf Urine Mucus (Occasional) /lpf Micro UA Comment Ur Microscopic Review Urine Culture Comments Nasal Screen MRSA (PCR) (Negative) Salicylates (2.8-20.0) mg/dL Urine Opiates Screen (Neg) Acetaminophen (10.0-30.0) mcg/mL Ur Barbiturates Screen (Neg) Ur Amphetamines Screen (Neg) U Benzodiazepines Scrn (Neg) Urine Cocaine Screen (Neg) U Cannabinoids Screen (Neg) Serum Alcohol (0-5) mg/dL 05/08/18 05/09/18 Range/Units 12:44 03:30 WBC (4.0-11.0) th/mm3 RBC (4.00-5.30) mil/mm3 Hgb (11.6-15.3) gm/dL Hct (35.0-46.0) % MCV (80.0-100.0) fL MCH (27.0-34.0) pg MCHC (32.0-36.0) % RDW (11.6-17.2) % Plt Count (150-450) th/mm3 MPV (7.0-11.0) fL Neut % (Auto) (16.0-70.0) % Lymph % (Auto) (9.0-44.0) % Forrest % (Auto) (0.0-8.0) % Eos % (Auto) (0.0-4.0) % Baso % (Auto) (0.0-2.0) % Neut # (Auto) (1.8-7.7) th/mm3 Lymph # (Auto) (1.0-4.8) th/mm3 [place] # (Auto) (0.0-0.9) th/mm3 Eos # (Auto) (0.0-0.4) th/mm3 Baso # (Auto) (0.0-0.2) th/mm3 WBC Differential Differential Comment D-Dimer Quant (PE/DVT) (0.00-0.50) mg/L FEU Puncture Site Patient Temperature O2 Saturation (90-100) % ABG pH (7.380-7.420) ABG pCO2 (38-42) mmHg ABG pO2 (61-120) mmHg ABG HCO3 (22-26) mmol/L ABG O2 Content (12.0-20.0) Vol % ABG Base Excess (-2-2) mmol/L ABG Methemoglobin (0-2) % Hemoglobin (12.0-16.0) G/DL Carboxyhemoglobin (0-4) % O2 Delivery Device Liter Flow L/M Critical Value Sodium 146 H (136-145) meq/L Potassium 3.9 (3.5-5.1) meq/L Chloride 114 H (98-107) meq/L Carbon Dioxide 27.7 (21.0-32.0) meq/L Anion Gap 4 L (5-15) meq/L BUN 7 (7-18) mg/dL Creatinine 0.78 (0.50-1.00) mg/dL Estimated GFR 80 L (>89) mL/min Random Glucose 102 (74-106) mg/dL Hemoglobin A1c (4.3-6.0) % Lactic Acid (0.4-2.0) mmol/L Calcium 7.8 L (8.5-10.1) mg/dL Phosphorus (2.5-4.9) mg/dL Magnesium (1.5-2.5) mg/dL Total Bilirubin 0.3 (0.2-1.0) mg/dL AST 161 H (15-37) U/L ALT 100 H (10-53) U/L Alkaline Phosphatase 68 (45-117) U/L Total Creatine Kinase 5249 H 3810 H (26-192) U/L CK-MB (CK-2) 8.1 H 4.7 H (0.5-3.6) ng/mL CK-MB (CK-2) % 0.2 0.1 (0.0-4.0) % Troponin I (0.02-0.05) ng/mL Total Protein 5.9 L D (6.4-8.2) g/dL Albumin 2.9 L (3.4-5.0) g/dL TSH (0.358-3.740) uIU/mL Free T4 (0.76-1.46) ng/dL Beta HCG, Qual (0-5) mIU/mL Urine Color (Yellw/Straw) Urine Clarity (Clear) Urine pH (5.0-8.5) Ur Specific [place] (1.002-1.035) Urine Protein (Neg-Trace) mg/dL Urine Glucose (UA) (Negative) mg/dL Urine Ketones (Negative) mg/dL Urine Occult Blood (Negative) Urine Nitrate (Negative) Urine Bilirubin (Negative) Urine Urobilinogen (Less than 2) mg/dL Ur Leukocyte Esterase (Negative) Urine RBC (0-3) /hpf Urine WBC (0-5) /hpf Ur Squamous Epith Cells (0-5) /hpf Amorphous Sediment (None) /hpf Hyaline Casts (0-3) /lpf Urine Mucus (Occasional) /lpf Micro UA Comment Ur Microscopic Review Urine Culture Comments Nasal Screen MRSA (PCR) (Negative) Salicylates (2.8-20.0) mg/dL Urine Opiates Screen (Neg) Acetaminophen (10.0-30.0) mcg/mL Ur Barbiturates Screen (Neg) Ur Amphetamines Screen (Neg) U Benzodiazepines Scrn (Neg) Urine Cocaine Screen (Neg) U Cannabinoids Screen (Neg) Serum Alcohol (0-5) mg/dL Imaging Data Radiologist's impression: Head CT 05/05/18 00:00 CONCLUSION: 1. Negative for an acute process. . Chest X-Ray 05/05/18 19:29 CONCLUSION: Under aerated with mild interstitial edema. Chest CT 05/05/18 21:40 CONCLUSION: 1. Asymmetrical apical pleural thickening 2. Lack of intravenous contrast makes detection of subtle pulmonary emboli difficult. Pulmonary Perfusion Imaging 05/06/18 00:00 CONCLUSION: 1. Low probability VQ scan. Venous Doppler Study 05/06/18 00:00 CONCLUSION: 1. The study is negative for bilateral lower extremity deep venous thrombosis. ECG Data Attestation: I personally reviewed and interpreted this ECG as follows: Interpretation: Twelve-lead EKG was reviewed by me. Normal sinus rhythm, normal axis, nonspecific ST-T wave changes. Heart rate of 90 bpm. Discharge Plan Discharge Disposition Patient Disposition: 30 Still Patient Physicians Team ED Provider: Lacy Newton Primary Care Provider: UNKNOWN, Attending Provider: Carmen Reynolds Other Providers: Ramesh Joyce Status ED Status: Left Department Discharge Information Discharge Date/Time: 05/05/18 23:39
[2018-05-05] MEDS ORDERED: Bisacodyl 10 MG Supp RECTAL PRN (21:35)
[2018-05-05] MEDS ORDERED: KCL 20 mEq/D5W/NaCl 0.45% Inj 1,000 ML IV.CONT SCH (21:45)
--- NOTE | 2018-05-05 21:59 | P.HPCC ---
History of Present Illness Service: Critical care medicine Primary Care Physician: UNKNOWN Chief Complaint: altered mental status History of Present Illness: 42-year-old female who was brought to the ER after being found unresponsive on her couch with emesis around her mouth mother. Patient reportedly has a history of overdose previously. When police arrived at her house patient was brought to the however was arousable and refusing any medical care. She was Pack acted and brought to the ER. She admitted to overdose on heroin/cocaine and Xanax which she had snorted. Her O2 sats were 84% on room air on arrival and improved to the 90s with nasal cannula 3 L. Patient was extremely lethargic however arousable following arrival in the ER. She had labs done in was initiated on BiPAP. Patient was accepted for admission by critical care medicine service. She was noted to be in renal failure with rhabdomyolysis. She is also complaining of left-sided chest pain posteriorly towards her back which she stated was going on for a few weeks. When I evaluated her in the ER she was drowsy though arousable tolerating BiPAP full face mask. Urine tox screen was pending at the time of my evaluation. Inpatient Certification: I certify that the inpatient services were ordered in accordance with Medicare regulations governing the order. This includes certification that hospital inpatient services are reasonable and necessary and in the case of services not specified as inpatient-only under 42 CFR 419.22(n), that they are appropriately provided as inpatient services in accordance to with the 2-midnight benchmark under 43 CFR 412.3(e) Estimated Total Length of Stay (Days): 4 Plans for Post Hospital Care: Not yet determined Review of Systems unobtainable due to mental condition PMFSH - History History Provided By: Tenderizer Tender / EMT - Medical History Medical History: Medical History (Last Reviewed 05/05/18 @ 20:57 by Lacy Newton MD) Medical history unknown Surgical history unknown - Tobacco History Second Hand Smoke Exposure: No Tobacco Use In Past 30 Days: Yes Smoking Status: Heavy tobacco smoker Tobacco Type: Cigarettes - Alcohol History How Often Do You Have a Drink Containing Alcohol: 4 or more times a week - Substance Use History Substance History: Active Abuse - Substance Use Type Opiates Status: Active - Travel History Recent Travel in the [place] Within the Last 8 Weeks: No Recent Travel Out of the Country Within the Last 8 Weeks: No - Immunization History Tetanus Immunization: >5 Years Medications and Allergies Active Medications: Active Medications Al Hydroxide/Mg Hydroxide (Milk Of Magnesia Liq) 30 ml PO Q12H PRN PRN Reason: Mild Constipation Albuterol (Albuterol Neb (Eulalia)) 2.5 mg NEB Q2HR NEB PRN PRN Reason: SHORTNESS OF BREATH/WHEEZING Albuterol (Duoneb Neb (Prn)) 1 ampul NEB Q6HR NEB EULALIA Bisacodyl (Dulcolax Supp) 10 mg RECTAL DAILY PRN PRN Reason: SEVERE CONSITIPATION Chlorhexidine Gluconate (Chlorhexidine 2% Cloth) 3 pack TOPICAL DAILY@0400 EULALIA Stop: 05/11/18 03:59 Chlorhexidine Gluconate (Chlorhexidine 2% Cloth) 3 pack TOPICAL DAILY@0400 PRN PRN Reason: Extra cloth needed Stop: 05/11/18 03:59 Famotidine (Pepcid Pf Inj) 20 mg IV.PUSH Q12HR EULALIA Sodium Chloride (Ns Inj) 1,000 mls @ 0 mls/hr IV.SIG BOLUS EULALIA Last Admin: 05/05/18 20:44 Dose: 999 mls/hr Sodium Chloride (Ns Inj) 1,000 mls @ 0 mls/hr IV.SIG BOLUS EULALIA Last Admin: 05/05/18 20:44 Dose: 999 mls/hr Sodium Chloride (Ns Inj) 1,000 mls @ 0 mls/hr IV.SIG BOLUS EULALIA Potassium Chloride/Dextrose/Sod Cl (D5w/1/2ns + Kcl 20 Meq Inj) 1,000 mls @ 100 mls/hr IV.CONT .Q10H EULALIA Lactulose (Lactulose Liq) 30 ml PO DAILY PRN PRN Reason: SEVERE CONSITIPATION Ondansetron HCl (Zofran Inj) 4 mg IV.PUSH Q6H PRN PRN Reason: NAUSEA OR VOMITING Senna/Docusate Sodium (Lynette-Colace) 1 tab PO BID EULALIA Sennosides (Senokot) 17.2 mg PO Q12H PRN PRN Reason: Moderate Constipation Sodium Chloride (Ns Flush) 2 ml IV.FLUSH BID EULALIA Sodium Chloride (Ns Flush) 2 ml IV.FLUSH PRN PRN PRN Reason: FLUSH AFTER USING IV ACCESS Allergies Allergy/AdvReac Type Severity Reaction Status Date / Time penicillin G Allergy Severe Anaphylaxis Unverified 06/28/17 16:29 Home Medications Medication Instructions Recorded Confirmed Type No Known Home Medications 05/05/18 05/05/18 History Unable to Obtain Home Meds 05/05/18 05/05/18 History Results - Labs CBC & Chem 7: 05/05/18 19:45 05/05/18 19:45 Labs: Short CBC 05/05/18 Range/Units 19:45 WBC 9.7 (4.0-11.0) th/mm3 Hgb 14.2 (11.6-15.3) gm/dL Hct 43.3 (35.0-46.0) % Plt Count 215 (150-450) th/mm3 BMP 05/05/18 19:45 Sodium 142 Potassium 5.0 Chloride 103 Carbon Dioxide 26.0 BUN 25 H Creatinine 2.60 H Calcium 9.0 Cardiac Enzymes 05/05/18 Range/Units 19:45 Total Creatine Kinase 2351 H (26-192) U/L CK-MB (CK-2) 21.5 H (0.5-3.6) ng/mL Troponin I Less than 0.02 L (0.02-0.05) ng/mL Liver Function 05/05/18 Range/Units 19:45 Total Bilirubin 0.3 (0.2-1.0) mg/dL AST 143 H (15-37) U/L ALT 83 H (10-53) U/L Alkaline Phosphatase 151 H (45-117) U/L Albumin 4.3 (3.4-5.0) g/dL - Imaging Impressions Chest X-Ray 05/05/18 19:29 CONCLUSION: Under aerated with mild interstitial edema. Exam Vital signs: Vital Signs 05/05/18 19:29 05/05/18 21:14 05/05/18 21:18 Temperature 98.4 F Pulse Rate 86 93 H Respiratory Rate 14 15 Blood Pressure 112/78 115/80 Pulse Oximetry 86 L 100 100 Intake & Output 05/05/18 05/05/18 05/06/18 06:59 18:59 06:59 Weight 65.771 kg Narrative: HEENT/Neuro: No pallor or icterus, tongue moist, pupils bilaterally constricted reacting to light actively, drowsy, arousable, on BiPAP with full facemask, nonfocal grossly, moving all 4 extremities Neck: No JVD Chest/pulmonary: CTA bilaterally Cardiovascular: S1-S2 regular no gallop or murmur GI/abdomen: Soft, nontender, bowel sounds present Extremities: Warm bilaterally, no edema Caprini VTE Risk Assessment Caprini VTE Risk Assessment: Moderate/High Risk (score >= 2) Caprini Risk Assessment Model: Point Value = 1 Point Value = 2 Point Value = 3 Point Value = 5 Age 41-60 Minor surgery BMI > 25 kg/m2 Swollen legs Varicose veins or History of unexplained or recurrent spontaneous Oral contraceptives or hormone replacement Sepsis (< 1 month) Serious lung disease, including pneumonia (< 1 month) Abnormal pulmonary function Acute myocardial infarction Congestive heart failure (< 1 month) History of inflammatory bowel disease Medical patient at bed rest Age 61-74 Arthroscopic surgery Major open surgery (> 45 min) Laparoscopic surgery (> 45 min) Malignancy Confined to bed (> 72 hours) Immobilizing plaster cast Central venous access Age >= 75 History of VTE Family history of VTE Factor V Leiden Prothrombin [id number] Lupus anticoagulant Anticardiolipin antibodies Elevated serum homocysteine Heparin-induced thrombocytopenia Other congenital or acquired thrombophilia Stroke (< 1 month) Elective arthroplasty Hip, pelvis, or leg fracture Acute spinal cord injury (< 1 month) Prophylaxis Regimen: Total Risk Factor Score Risk Level Prophylaxis Regimen 0-1 Low Early ambulation 2 Moderate Order ONE of the following: *Sequential Compression Device (SCD) *Heparin 5000 units SQ BID 3-4 Higher Order ONE of the following medications: *Heparin 5000 units SQ TID *Enoxaparin/Lovenox 40 mg SQ daily (WT < 150 kg, CrCl > 30 mL/min) *Enoxaparin/Lovenox 30 mg SQ daily (WT < 150 kg, CrCl > 10-29 mL/min) *Enoxaparin/Lovenox 30 mg SQ BID (WT < 150 kg, CrCl > 30 mL/min) AND/OR *Sequential Compression Device (SCD) 5 or more Highest Order ONE of the following medications: *Heparin 5000 units SQ TID (Preferred with Epidurals) *Enoxaparin/Lovenox 40 mg SQ daily (WT < 150 kg, CrCl > 30 mL/min) *Enoxaparin/Lovenox 30 mg SQ daily (WT < 150 kg, CrCl > 10-29 mL/min) *Enoxaparin/Lovenox 30 mg SQ BID (WT < 150 kg, CrCl > 30 mL/min) AND *Sequential Compression Device (SCD) Assessment and Plan - Assessment and Plan Plan: 42-year-old female with: Encephalopathy secondary to overdose with Xanax/heroin/cocaine Acute respiratory failure Suspected prehospital aspiration Left-sided chest pain Rhabdomyolysis ANGELA Plan: Neuro: Follow neuro status, avoid sedatives and narcotics. On BiPAP in view of respiratory acidosis secondary to narcotics. Cardiovascular: IV hydration. Elevated d-dimer noted though this is nonspecific. Will obtain head CT and if negative for any acute pathology consider full anticoagulation. Pulmonary: Continue BiPAP. Bronchodilators, once neuro status improved will attempt transitioning to nasal cannula. CT chest without IV contrast for further evaluation of left posterior chest/flank pain. Consider VQ scan if patient remains hypoxic tomorrow. GI/liver: N.p.o. for now till improvement in neurologic status. Renal/: IV hydration, strict intake output, monitor and replete electrodes, follow BUN/creatinine. Ritter catheterization for accurate hourly intake output. ID: Concern for aspiration. Hold off on antibiotics at this time. Endocrine: Watch for hypoglycemia, SSI for glycemic control if needed Prophylaxis: Pepcid. Consider full anticoagulation if head CT negative. Condition critical Time spent on critical care excluding procedures 50 minutes
[2018-05-05 22:19] LABS: Amphetamine Screen,Urine Neg (Neg); Barbiturate Screen,Urine Neg (Neg); Cannabinoid Screen,Urine Neg (Neg); Cocaine Screen,Urine Pos (Neg)
[2018-05-05 22:21] LABS: Opiate Screen,Urine Neg (Neg)
--- NOTE | 2018-05-05 22:23 | CT ---
EXAM DATE: 05/05/2018 10:03 PM EDT AGE/SEX: 42 years / Female INDICATIONS: Respiratory failure. Overdose CLINICAL DATA: This is the patient's initial encounter. Patient reports that signs and symptoms have been present for 1 day and indicates a pain score of Nonresponsive. MEDICAL/SURGICAL HISTORY: Non-responsive. Substance abuse Non-responsive. RADIATION DOSE: 13.9 CTDI (mGy) COMPARISON: No prior exams available for comparison. TECHNIQUE: Multiple contiguous axial images were obtained through the chest without contrast. Image s were obtained in suspended respiration using multiple row detector helical technique. Using automa namrata exposure control and adjustment of the mA and/or kV according to patient size, radiation dose was kept as low as reasonably achievable to obtain optimal diagnostic quality images. DICOM format imag e data is available electronically for review and comparison. FINDINGS: Apical pleural thickening is evident. Lungs are otherwise clear. There is no axillary adenopathy. The re is no mediastinal adenopathy. Upper abdominal contents are grossly unremarkable Review of bone windows reveals no bony abnormality. CONCLUSION: 1. Asymmetrical apical pleural thickening 2. Lack of intravenous contrast makes detection of subtle pulmonary emboli difficult. Electronically signed by: Juan Stephenson MD 05/05/2018 10:22 PM EDT
--- NOTE | 2018-05-05 22:25 | CT ---
EXAM DATE: 05/05/2018 10:03 PM EDT AGE/SEX: 42 years / Female INDICATIONS: Patient found unresponsive; possible overdose. Slurred speech and lethargic with pinpo int pupils now. CLINICAL DATA: This is the patient's initial encounter. Patient reports that signs and symptoms have been present for 1 day and indicates a pain score of Nonresponsive. MEDICAL/SURGICAL HISTORY: Non-responsive. Substance abuse Non-responsive. RADIATION DOSE: 56.35 CTDI (mGy) COMPARISON: No prior exams available for comparison. TECHNIQUE: CT of the head without contrast. Using automated exposure control and adjustment of the mA and/or kV according to patient size, radiation dose was kept as low as reasonably achievable to ob tain optimal diagnostic quality images. DICOM format image data is available electronically for revi ew and comparison. FINDINGS: Cerebrum: The ventricles are normal for age. No evidence of midline shift, mass lesion, hemorrhage or acute infarction. No extraaxial fluid collections are seen. Posterior Fossa: The cerebellum and brainstem are intact. The 4th ventricle is midline. The cerebe llopontine angle is unremarkable. Extracranial: The visualized portion of the orbits is intact. Skull: The calvaria is intact. No evidence of skull fracture. CONCLUSION: 1. Negative for an acute process. . Electronically signed by: Juan Stephenson MD 05/05/2018 10:24 PM EDT
[2018-05-05 22:27] LABS: Amorphous Sediment,Urine Few /hpf; Bilirubin,Urine Negative (Negative); Clarity,Urine Hazy (Clear); Color,Urine Yellow (Yellw/Straw); Glucose,Urine (UA) Negative (Negative); Hyaline Casts,Urine 3 /lpf (0-3); Leukocyte Esterase,Urine Negative (Negative); Mucus,Urine Few /lpf (Occasional); Nitrite,Urine Negative (Negative); Specific Gravity,Urine 1.019 (1.002-1.035); Squamous Epithelial Cell,Urine 1 /hpf (0-5)
[2018-05-05] MEDS ORDERED: Enoxaparin Inj 60 MG/0.6 ML Syringe SQ ONE (22:29)
[2018-05-06] MEDS ORDERED: Chlorhexidine Gluconate 2% 1 Pack (2 Cloths) TOPICAL PRN (04:00)
[2018-05-06] MEDS: Chlorhexidine Gluconate 2% 1 Pack (2 Cloths) TOPICAL SCH (04:36)
[2018-05-06 04:54] LABS: Baso % (Auto) 0.3 % (0.0-2.0); Hematocrit 37.2 % (35.0-46.0); Hemoglobin 12.7 gm/dL (11.6-15.3); Lymph # (Auto) 1.1 th/mm3 (1.0-4.8); Lymph % (Auto) 13.6 % (9.0-44.0); Mean Corpuscular HGB Conc 34.2 % (32.0-36.0); Mean Corpuscular Hemoglobin 31.7 pg (27.0-34.0); Mean Corpuscular Volume 92.8 fL (80.0-100.0); Mean Platelet Volume 8.2 fL (7.0-11.0); Mono # (Auto) 0.5 th/mm3 (0.0-0.9); Mono % (Auto) 6.4 % (0.0-8.0); Neut # (Auto) 6.6 th/mm3 (1.8-7.7); Neut % (Auto) 79.7 % (16.0-70.0); Platelet Count 166 th/mm3 (150-450); Red Blood Count 4.01 mil/mm3 (4.00-5.30); Red Cell Distribution Width 13.6 % (11.6-17.2); White Blood Count 8.2 th/mm3 (4.0-11.0)
[2018-05-06 05:51] LABS: Alanine Aminotransferase 93 U/L (10-53); Albumin 3.5 g/dL (3.4-5.0); Alkaline Phosphatase 92 U/L (45-117); Anion Gap 5 meq/L (5-15); Aspartate Aminotransferase 240 U/L (15-37); Blood Urea Nitrogen 18 mg/dL (7-18); Calcium 7.6 mg/dL (8.5-10.1); Carbon Dioxide 24.6 meq/L (21.0-32.0); Chloride 110 meq/L (98-107); Creatine Kinase 7321 U/L (26-192); Glomerular Filtration Rate 55 mL/min (>89); Glucose,Random 103 mg/dL (74-106); Potassium 4.9 meq/L (3.5-5.1); Sodium 140 meq/L (136-145); Total Protein 6.4 g/dL (6.4-8.2)
[2018-05-06 06:13] LABS: CKMB Percent 1.6 % (0.0-4.0); Creatine Kinase MB 117.6 ng/mL (0.5-3.6)
--- NOTE | 2018-05-06 07:27 | P.PNCC ---
Subjective Subjective Remarks/Hospital Course: 42-year-old female who was brought to the ER after being found unresponsive on her couch with emesis around her mouth. Patient reportedly has a history of overdose previously. When police arrived at her house patient was brought to the however was arousable and refusing any medical care. She was Pack acted and brought to the ER. She admitted to overdose on heroin/cocaine and Xanax which she had snorted. Her O2 sats were 84% on room air on arrival and improved to the 90s with nasal cannula 3 L. Patient was extremely lethargic however arousable following arrival in the ER. She had labs done in was initiated on BiPAP. Patient was accepted for admission by critical care medicine service. She was noted to be in renal failure with rhabdomyolysis. She is also complaining of left-sided chest pain posteriorly towards her back which she stated was going on for a few weeks. When I evaluated her in the ER she was drowsy though arousable tolerating BiPAP full face mask. Urine tox screen was pending at the time of my evaluation. SUBJ 05/06: Patient is awake alert sitting up in bed. Denies any shortness of breath however tearful. Admits to intentional overdose. Psych consult is pending at this time. CPK increased to 7000 today. Potassium is 4.9 I will change IV fluid to normal saline without potassium at 100 mL/h Objective Vital Signs / I&O: Vital Signs 05/05/18 19:29 05/05/18 21:14 05/05/18 21:18 Temperature 98.4 F Pulse Rate 86 93 H Respiratory Rate 14 15 Blood Pressure 112/78 115/80 Pulse Oximetry 86 L 100 100 05/05/18 21:57 05/05/18 22:15 05/05/18 22:45 Temperature 97.6 F Pulse Rate 92 H 92 H Respiratory Rate 12 26 H Blood Pressure 110/77 Pulse Oximetry 96 95 05/06/18 00:00 05/06/18 02:00 05/06/18 04:00 Temperature 97.7 F 98.1 F Pulse Rate 81 74 68 Respiratory Rate 17 16 Blood Pressure 101/60 129/74 Pulse Oximetry 94 L 100 05/06/18 04:43 05/06/18 06:00 Temperature Pulse Rate 71 74 Respiratory Rate 22 Blood Pressure Pulse Oximetry Intake & Output 05/05/18 05/06/18 05/06/18 18:59 06:59 18:59 Intake Total 4315 / 4315 Output Total 1200 / 1200 Balance 3115 / 3115 Weight 87.5 kg Intake: IV 3875 / 3875 D5W/1/2NS + KCL 20 mEq Inj 1, 875 / 875 000 ML @ 100 mls/hr IV.CONT . Q10H TANYA Rx#:[id number] NS Inj 1,000 ML @ Wide Open IV. 3000 / 3000 SIG BOLUS TANYA Rx#:[id number] Oral 440 / 440 Output: Urine Amount (Catheter) 1200 / 1200 Indwelling Urethral Catheter 1200 / 1200 Other: Weight On Admission 86 kg Result Diagrams: 05/06/18 04:38 05/06/18 04:38 Objective Remarks: HEENT: No pallor or icterus, tongue moist, pupils bilaterally constricted reacting to light actively Neck: No JVD Chest/pulmonary: CTA bilaterally Cardiovascular: S1-S2 regular no gallop or murmur GI/abdomen: Soft, nontender, bowel sounds present Extremities: Warm bilaterally, no edema Neuro: Alert awake now, nonfocal grossly, moving all 4 extremities. Follows commands, tearful Assessment and Plan - Assessment and Plan Plan: 42-year-old female with: Encephalopathy secondary to overdose with Xanax/heroin/cocaine Acute respiratory failure-resolved Suspected prehospital aspiration Left-sided chest pain Rhabdomyolysis ANGELA Plan: Neuro: Follow neuro status, avoid sedatives and narcotics. UDS positive for benzos and cocaine. Watch closely for withdrawal. Await psych consult Cardiovascular: IV hydration. Elevated d-dimer noted though this is nonspecific. Received therapeutic Lovenox yesterday. Check VQ scan to rule out PE Pulmonary: Weaned off BiPAP. Bronchodilators. CT chest without IV contrast - apical pleural thickening. VQ scan today GI/liver: Start regular diet Renal/: IV hydration, strict intake output, monitor and replete electrodes, follow BUN/creatinine. Discontinue Ritter ID: Concern for aspiration-CT chest negative. Hold off on antibiotics at this time. Endocrine: Watch for hypoglycemia, SSI for glycemic control if needed Prophylaxis: Pepcid. Increase activity, continue subcu Lovenox prophylactically Level 2 Consult hospitalist to assume care in a.m. transferred to [facility], may need sitter as the patient is Pack acted. Once rhabdomyolysis improves can transfer to psych Code Status: Full
[2018-05-06] MEDS: Sod Chloride 0.9% Inj 1,000 ML IV.CONT SCH ×2 (08:13→18:49)
[2018-05-06] MEDS: Senna/Docusate Sodium 8.6/50 MG Tablet PO SCH ×2 (08:13→20:25)
[2018-05-06] MEDS: Famotidine PF Inj 20 MG/2 ML Vial IV.PUSH SCH ×2 (08:13→20:25)
--- NOTE | 2018-05-06 09:44 | US ---
EXAM DATE: 05/06/2018 12:00 AM EDT AGE/SEX: 42 years / Female INDICATIONS: Bilateral leg swelling. CLINICAL DATA: This is the patient's initial encounter. Patient reports that signs and symptoms have been present for 2 days and indicates a pain score of 0/10. MEDICAL/SURGICAL HISTORY: . Bilateral leg swelling. Substance abuse. None. COMPARISON: No prior exams available for comparison. TECHNIQUE: Venous ultrasound of both lower extremities was performed from the inguinal ligament to t he proximal calf. Real-time, color Doppler and spectral tracing, compression and augmentation techni ques were used. FINDINGS: Right Leg: Normal compression of the deep venous system from the inguinal region to the proximal elba f. No echogenic clot is seen. Normal response of the venous system to augmentation and respiration. Left Leg: Normal compression of the deep venous system from the inguinal region to the proximal calf . No echogenic clot is seen. Normal response of the venous system to augmentation and respiration. Other: None. CONCLUSION: 1. The study is negative for bilateral lower extremity deep venous thrombosis. Electronically signed by: Dusty Carmen MD 05/06/2018 9:43 AM EDT
--- NOTE | 2018-05-06 10:51 | NM ---
EXAM DATE: 05/06/2018 10:07 AM EDT AGE/SEX: 42 years / Female INDICATIONS: Respiratory distress. CLINICAL DATA: This is the patient's initial encounter. Patient reports that signs and symptoms have been present for 1 day and indicates a pain score of 0/10. MEDICAL/SURGICAL HISTORY: Renal failure, acute. Heroin, cocaine and xanax abuse. None. COMPARISON: [facility], CHEST 1V SINGLE AP, 05/05/2018. . DOSE: 1.2 mCi Tc99m DTPA aerosol 8.5 mCi Tc99m MAA IV TECHNIQUE: Following five minutes of tidal breathing of DTPA aerosol, planar images of the lungs wer e performed in eight projections. The patient was then injected with MAA, and eight-view perfusion s can was performed. FINDINGS: Chest radiograph demonstrates no significant focal opacities. There is a homogeneous pattern of aerosol delivery to the periphery of both lungs. No focal ventilat ory defects are seen. The perfusion lung scan demonstrates a homogenous pattern of uptake in both lungs. No segmental or s ubsegmental defects are seen. CONCLUSION: 1. Low probability VQ scan. Electronically signed by: Dusty Carmen MD 05/06/2018 10:49 AM EDT
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
--- NOTE | 2018-05-06 13:46 | ECG ---
Date Performed: 05/05/2018 Time Performed: 19:38:32 PTAGE: 42 years EKG: Sinus rhythm NORMAL ECG PREVIOUS TRACING 12/22/2015 11.08 Since the previous tracing, no significant change noted DOCTOR: Milo Mccray Interpretating Date/Time 05/06/2018 13:44:13
--- NOTE | 2018-05-06 15:41 | ECHRPT ---
Indication: short of breathe CONCLUSIONS Normal left ventricular size. The left ventricular systolic function is low normal with an estimated ejection fraction in the rang e of 50- 55%. Wall thickness is normal. Trace mitral valve regurgitation. There is mild tricuspid valve regurgitation. The estimated pulmonary arterial pressure is 36 mmHg. BP: / HR: Rhythm: MEASUREMENTS (Male / Female) Normal Values Technical Quality: 2D ECHO LV Diastolic Diameter PLAX 4.4 cm 4.2 - 5.9 / 3.9 - 5.3 cm LV Systolic Diameter PLAX 3.5 cm IVS Diastolic Thickness 0.8 cm 0.6 - 1.0 / 0.6 - 0.9 cm LVPW Diastolic Thickness 1.0 cm 0.6 - 1.0 / 0.6 - 0.9 cm LV Relative Wall Thickness 0.4 RV Internal Dim ED PLAX 3.0 cm LVOT Diameter 1.6 cm Aortic Root Diameter 2.6 cm LA Systolic Diameter LX 3.1 cm 3.0 - 4.0 / 2.7 - 3.8 cm LV Ejection Fraction MOD 4C 53.5 % LV Ejection Fraction 4C AL 53.3 % M-MODE Aortic Root Diameter MM 3.2 cm LA Systolic Diameter MM 3.9 cm LA Ao Ratio MM 1.2 AV Cusp Separation MM 2.0 cm DOPPLER AV Peak Velocity 137.0 cm/s AV Peak Gradient 7.5 mmHg LVOT Peak Velocity 111.0 cm/s LVOT Peak Gradient 4.9 mmHg AV Area Cont Eq pk 1.6 cm Mitral E Point Velocity 43.4 cm/s Mitral A Point Velocity 80.9 cm/s Mitral E to A Ratio 0.5 LV E' Lateral Velocity 6.6 cm/s Mitral E to LV E' Lateral Ratio 6.5 LV E' Septal Velocity 5.8 cm/s Mitral E to LV E' Septal Ratio 7.4 TR Peak Velocity 257.0 cm/s TR Peak Gradient 26.4 mmHg Right Atrial Pressure 10.0 mmHg Pulmonary Artery Systolic Pressu 36.4 mmHg Right Ventricular Systolic Press 36.4 mmHg PV Peak Velocity 45.4 cm/s PV Peak Gradient 0.8 mmHg FINDINGS LEFT VENTRICLE Normal left ventricular size. The left ventricular systolic function is low normal with an estimated ejection fraction in the rang e of 50- 55%. Wall thickness is normal. RIGHT VENTRICLE Normal right ventricular size and systolic function. LEFT ATRIUM The left atrial size is normal. RIGHT ATRIUM The right atrial size is normal. ATRIAL SEPTUM Normal atrial septal thickness without atrial level shunting by limited color doppler interrogation. MITRAL VALVE Trace mitral valve regurgitation. AORTIC VALVE The aortic valve is not well visualized. No aortic valve stenosis or regurgitation. TRICUSPID VALVE There is mild tricuspid valve regurgitation. The estimated pulmonary arterial pressure is 36 mmHg. PULMONARY VALVE The pulmonary valve is not well visualized. VESSELS The inferior vena cava is normal in size. PERICARDIUM No pericardial effusion. Carlos Stewart (Electronically Signed) Final Date:06 May 2018 15:40
[2018-05-07] MEDS: Sod Chloride 0.9% Inj 1,000 ML IV.CONT SCH ×3 (03:27→23:54)
[2018-05-07] MEDS: Chlorhexidine Gluconate 2% 1 Pack (2 Cloths) TOPICAL SCH (03:27)
[2018-05-07 07:46] LABS: Baso % (Auto) 0.9 % (0.0-2.0); Eos # (Auto) 0.1 th/mm3 (0.0-0.4); Eos % (Auto) 1.1 % (0.0-4.0); Hematocrit 35.4 % (35.0-46.0); Hemoglobin 12.1 gm/dL (11.6-15.3); Lymph # (Auto) 1.4 th/mm3 (1.0-4.8); Lymph % (Auto) 25.3 % (9.0-44.0); Mean Corpuscular HGB Conc 34.3 % (32.0-36.0); Mean Corpuscular Hemoglobin 31.5 pg (27.0-34.0); Mean Corpuscular Volume 91.9 fL (80.0-100.0); Mean Platelet Volume 8.6 fL (7.0-11.0); Mono # (Auto) 0.3 th/mm3 (0.0-0.9); Mono % (Auto) 5.7 % (0.0-8.0); Neut # (Auto) 3.7 th/mm3 (1.8-7.7); Platelet Count 154 th/mm3 (150-450); Red Blood Count 3.85 mil/mm3 (4.00-5.30); Red Cell Distribution Width 13.7 % (11.6-17.2); White Blood Count 5.6 th/mm3 (4.0-11.0)
[2018-05-07] MEDS: Famotidine PF Inj 20 MG/2 ML Vial IV.PUSH SCH ×2 (08:05→20:06)
[2018-05-07] MEDS: Senna/Docusate Sodium 8.6/50 MG Tablet PO SCH ×2 (08:05→20:06)
[2018-05-07 08:13] LABS: Albumin 3.2 g/dL (3.4-5.0); Anion Gap 8 meq/L (5-15); Aspartate Aminotransferase 275 U/L (15-37); Blood Urea Nitrogen 6 mg/dL (7-18); Calcium 7.9 mg/dL (8.5-10.1); Carbon Dioxide 25.5 meq/L (21.0-32.0); Chloride 111 meq/L (98-107); Glomerular Filtration Rate 88 mL/min (>89); Glucose,Random 98 mg/dL (74-106); Magnesium 2.1 mg/dL (1.5-2.5); Potassium 3.5 meq/L (3.5-5.1); Sodium 144 meq/L (136-145)
[2018-05-07 08:33] LABS: Alanine Aminotransferase 113 U/L (10-53); Alkaline Phosphatase 73 U/L (45-117); Creatine Kinase 6946 U/L (26-192); Free T4 (Free Thyroxine) 0.79 ng/dL (0.76-1.46); Thyroid Stimulating Hormone 0.857 uIU/mL (0.358-3.740); Total Protein 5.9 g/dL (6.4-8.2)
[2018-05-07 08:46] LABS: CKMB Percent 0.6 % (0.0-4.0); Creatine Kinase MB 40.3 ng/mL (0.5-3.6)
[2018-05-07] MEDS: Sertraline 50 MG Tablet PO SCH (09:44)
--- NOTE | 2018-05-07 10:14 | P.PNIM ---
Subjective Interval history: 42-year-old female who was brought to the ER after being found unresponsive on her couch with emesis around her mouth. Patient reportedly has a history of overdose previously. When police arrived at her house patient was brought to the however was arousable and refusing any medical care. She was Pack acted and brought to the ER. She admitted to overdose on heroin/cocaine and Xanax which she had snorted. Her O2 sats were 84% on room air on arrival and improved to the 90s with nasal cannula 3 L. Patient was extremely lethargic however arousable following arrival in the ER. She had labs done in was initiated on BiPAP. Patient was accepted for admission by critical care medicine service. She was noted to be in renal failure with rhabdomyolysis. She is also complaining of left-sided chest pain posteriorly towards her back which she stated was going on for a few weeks. When I evaluated her in the ER she was drowsy though arousable tolerating BiPAP full face mask. Urine tox screen was pending at the time of my evaluation. SUBJ 05/06: Patient is awake alert sitting up in bed. Denies any shortness of breath however tearful. Admits to intentional overdose. Psych consult is pending at this time. CPK increased to 7000 today. Potassium is 4.9 I will change IV fluid to normal saline without potassium at 100 mL/h 05-07 patient has been transferred to our service today. From the critical care service. Patient still noted to have rhabdomyolysis Still needs to be on fluids Still needs a sitter Continue with IV fluids A.m. labs PT and OT to eval and treat Discussed with RN and patient Keep in ICU at this time until rhabdomyolysis improved Physical Exam Vital signs: Vital Signs 05/06/18 10:58 05/06/18 11:00 05/06/18 12:00 Temperature 99 F Pulse Rate 83 92 H 93 H Respiratory Rate 18 Blood Pressure 108/60 106/61 110/74 Pulse Oximetry 96 94 L 97 05/06/18 13:00 05/06/18 13:01 05/06/18 14:00 Temperature Pulse Rate 87 94 H 89 Respiratory Rate Blood Pressure 133/72 124/71 Pulse Oximetry 05/06/18 15:00 05/06/18 15:01 05/06/18 15:41 Temperature Pulse Rate 79 85 Respiratory Rate 17 18 22 Blood Pressure 143/88 H Pulse Oximetry 05/06/18 16:00 05/06/18 17:00 05/06/18 17:37 Temperature 97.8 F Pulse Rate 94 H 88 90 Respiratory Rate 18 Blood Pressure 135/83 151/84 H Pulse Oximetry 05/06/18 20:00 05/06/18 20:42 05/06/18 22:00 Temperature 99.2 F Pulse Rate 88 93 H 98 H Respiratory Rate 26 H 18 Blood Pressure 147/90 H Pulse Oximetry 94 L 05/07/18 00:00 05/07/18 02:00 05/07/18 03:58 Temperature 99 F Pulse Rate 96 H 89 102 H Respiratory Rate 32 H 20 Blood Pressure 143/81 H Pulse Oximetry 100 05/07/18 04:00 05/07/18 06:00 05/07/18 07:00 Temperature 99.4 F Pulse Rate 92 H 85 79 Respiratory Rate 23 Blood Pressure 152/78 H 130/73 Pulse Oximetry 94 L 97 05/07/18 08:00 05/07/18 08:06 Temperature 99.4 F Pulse Rate 90 Respiratory Rate 19 Blood Pressure 116/58 L Pulse Oximetry 96 97 Intake & Output 05/06/18 05/07/18 05/07/18 18:59 06:59 18:59 Intake Total 1000 / 1000 1480 / 1480 Output Total 1500 / 1500 1300 / 1300 Balance -500 / -500 180 / 180 Weight 84.5 kg Intake: IV 1000 / 1000 1000 / 1000 D5W/1/2NS + KCL 20 mEq Inj 1, 0 / 0 000 ML @ 100 mls/hr IV.CONT . Q10H TANYA Rx#:[id number] NS Inj 1,000 ML @ 100 mls/hr IV 1000 / 1000 1000 / 1000 .CONT .Q10H TANYA Rx#:[id number] Oral 480 / 480 Output: Urine 1100 / 1100 1300 / 1300 Urine Amount (Catheter) 400 / 400 Indwelling Urethral Catheter 400 / 400 Other: # Voids 1 # Bowel Movements 0 Narrative: GENERAL: Awake alert and oriented x3 talkative and cooperative SKIN: Warm and dry. HEAD: Atraumatic. Normocephalic. EYES: Pupils equal and round. No scleral icterus. No injection or drainage. EOMI ENT: No nasal bleeding or discharge. Mucous membranes pink and moist. Tongue is midline NECK: Trachea midline. No JVD. Supple CARDIOVASCULAR: Regular rate and rhythm. S1-S2 no S3 or S4 RESPIRATORY: No accessory muscle use. Clear to auscultation. Breath sounds equal bilaterally. GASTROINTESTINAL: Abdomen soft, non-tender, nondistended. Hepatic and splenic margins not palpable. MUSCULOSKELETAL: Extremities without clubbing, cyanosis, or edema. No obvious deformities. NEUROLOGICAL: Awake and alert. No obvious cranial nerve deficits. Motor grossly within normal limits. Five out of 5 muscle strength in the arms and legs. Normal speech. PSYCHIATRIC: INAppropriate mood and affect; insight and judgment ABnormal. - Urinary Catheter Management Indwelling Urethral Catheter Cath placed during this visit: yes, but has since been removed by the nurse Reason for continuing: Decision to DC catheter Insertion date: 05/05/18 Insertion time: 21:59 Removal date: 05/06/18 Removal time: 08:22 Results - Labs CBC & Chem 7: 05/07/18 06:33 05/07/18 06:33 Laboratory Results - last 24 hr 05/05/18 05/07/18 05/07/18 22:52 06:33 06:33 WBC 5.6 RBC 3.85 L Hgb 12.1 Hct 35.4 MCV 91.9 MCH 31.5 MCHC 34.3 RDW 13.7 Plt Count 154 MPV 8.6 Neut % (Auto) 67.0 Lymph % (Auto) 25.3 [place] % (Auto) 5.7 Eos % (Auto) 1.1 Baso % (Auto) 0.9 Neut # (Auto) 3.7 Lymph # (Auto) 1.4 [place] # (Auto) 0.3 Eos # (Auto) 0.1 Baso # (Auto) 0.0 WBC Differential . Differential Comment Auto diff final Sodium 144 Potassium 3.5 D Chloride 111 H Carbon Dioxide 25.5 Anion Gap 8 BUN 6 L Creatinine 0.72 Estimated GFR 88 L Random Glucose 98 Calcium 7.9 L Phosphorus 1.0 L Magnesium 2.1 Total Bilirubin 0.2 AST 275 H ALT 113 H Alkaline Phosphatase 73 Total Creatine Kinase 6946 H CK-MB (CK-2) 40.3 H CK-MB (CK-2) % 0.6 Total Protein 5.9 L Albumin 3.2 L TSH 0.857 Free T4 0.79 Nasal Screen MRSA (PCR) Not detected - Imaging Impressions Pulmonary Perfusion Imaging 05/06/18 00:00 CONCLUSION: 1. Low probability VQ scan. Assessment and Plan - Plan 42-year-old female with: Encephalopathy secondary to overdose with Xanax/heroin/cocaine-slow improvement Acute respiratory failure-resolved Suspected prehospital aspiration-monitor labs Left-sided chest pain Rhabdomyolysis-continue IV fluids ANGELA-continue IV fluids Plan: Neuro: Follow neuro status, avoid sedatives and narcotics. UDS positive for benzos and cocaine. Watch closely for withdrawal. Await psych consult Cardiovascular: IV hydration. Elevated d-dimer noted though this is nonspecific. Received therapeutic Lovenox yesterday. Check VQ scan to rule out PE Pulmonary: Weaned off BiPAP. Bronchodilators. CT chest without IV contrast - apical pleural thickening. VQ scan today GI/liver: Start regular diet Renal/: IV hydration, strict intake output, monitor and replete electrodes, follow BUN/creatinine. Discontinue Ritter ID: Concern for aspiration-CT chest negative. Hold off on antibiotics at this time. Endocrine: Watch for hypoglycemia, SSI for glycemic control if needed Prophylaxis: Pepcid. Increase activity, continue subcu Lovenox prophylactically Add physical therapy and Occupational Therapy Psychiatry has wanted to start Zoloft will start at 25 mg p.o. daily Still has rhabdomyolysis needs aggressive fluid rehydration still Still taking Ativan for withdrawal symptoms Code Status: Full code Discussed Condition With: RN and patient Discharge Planning: Once rhabdomyolysis is improved can be transferred to inpatient psychiatry
[2018-05-07 17:15] LABS: Hemoglobin A1c 5.7 % (4.3-6.0)
[2018-05-08] MEDS: Chlorhexidine Gluconate 2% 1 Pack (2 Cloths) TOPICAL SCH (03:33)
[2018-05-08 06:12] LABS: Baso % (Auto) 0.9 % (0.0-2.0); Eos # (Auto) 0.1 th/mm3 (0.0-0.4); Eos % (Auto) 1.1 % (0.0-4.0); Hemoglobin 12.4 gm/dL (11.6-15.3); Lymph # (Auto) 1.3 th/mm3 (1.0-4.8); Mean Corpuscular HGB Conc 34.5 % (32.0-36.0); Mean Corpuscular Hemoglobin 31.3 pg (27.0-34.0); Mean Corpuscular Volume 90.8 fL (80.0-100.0); Mean Platelet Volume 7.9 fL (7.0-11.0); Mono # (Auto) 0.3 th/mm3 (0.0-0.9); Mono % (Auto) 6.6 % (0.0-8.0); Neut # (Auto) 2.9 th/mm3 (1.8-7.7); Neut % (Auto) 63.4 % (16.0-70.0); Platelet Count 161 th/mm3 (150-450); Red Blood Count 3.97 mil/mm3 (4.00-5.30); Red Cell Distribution Width 13.8 % (11.6-17.2); White Blood Count 4.6 th/mm3 (4.0-11.0)
[2018-05-08 06:47] LABS: Albumin 3.3 g/dL (3.4-5.0); Anion Gap 6 meq/L (5-15); Aspartate Aminotransferase 239 U/L (15-37); Blood Urea Nitrogen 4 mg/dL (7-18); Calcium 8.3 mg/dL (8.5-10.1); Carbon Dioxide 27.1 meq/L (21.0-32.0); Chloride 113 meq/L (98-107); Glomerular Filtration Rate 81 mL/min (>89); Glucose,Random 92 mg/dL (74-106); Magnesium 2.1 mg/dL (1.5-2.5); Phosphorus 1.6 mg/dL (2.5-4.9); Potassium 3.5 meq/L (3.5-5.1); Sodium 146 meq/L (136-145)
[2018-05-08 06:50] LABS: Alanine Aminotransferase 118 U/L (10-53); Alkaline Phosphatase 81 U/L (45-117); Free T4 (Free Thyroxine) 0.81 ng/dL (0.76-1.46); Total Protein 6.6 g/dL (6.4-8.2)
[2018-05-08] MEDS: Famotidine PF Inj 20 MG/2 ML Vial IV.PUSH SCH ×2 (08:23→22:08)
[2018-05-08] MEDS: Senna/Docusate Sodium 8.6/50 MG Tablet PO SCH ×2 (08:23→22:09)
[2018-05-08] MEDS: Sertraline 50 MG Tablet PO SCH (08:24)
[2018-05-08] MEDS: Sod Chloride 0.9% Inj 1,000 ML IV.CONT SCH ×2 (10:53→20:07)
--- NOTE | 2018-05-08 11:18 | P.PN ---
Subjective Interval history: Complains of back pain. Her blood pressures also elevated says she is taking clonidine. No shortness of breath or chest pain. No nausea or vomiting. However not eating much. No palpitations. Physical Exam Vital signs: Vital Signs 05/07/18 12:00 05/07/18 12:56 05/07/18 13:00 Temperature 98.8 F Pulse Rate 74 100 H 116 H Respiratory Rate 20 21 Blood Pressure Pulse Oximetry 92 L 95 05/07/18 13:42 05/07/18 13:43 05/07/18 14:00 Temperature Pulse Rate 80 87 77 Respiratory Rate 21 23 Blood Pressure 165/90 H 160/91 H Pulse Oximetry 100 100 100 05/07/18 15:00 05/07/18 15:46 05/07/18 16:00 Temperature Pulse Rate 86 83 86 Respiratory Rate 16 21 Blood Pressure 164/93 H 166/92 H Pulse Oximetry 99 95 05/07/18 17:00 05/07/18 20:00 05/07/18 22:00 Temperature 98.5 F Pulse Rate 101 H 93 H 88 Respiratory Rate 35 H Blood Pressure 153/91 H Pulse Oximetry 94 L 05/08/18 00:00 05/08/18 02:00 05/08/18 03:44 Temperature 98.7 F Pulse Rate 85 78 83 Respiratory Rate 23 18 Blood Pressure 158/96 H Pulse Oximetry 96 05/08/18 03:45 05/08/18 04:00 05/08/18 06:00 Temperature 99 F Pulse Rate 87 81 Respiratory Rate 28 H Blood Pressure 161/92 H Pulse Oximetry 97 96 05/08/18 09:21 Temperature Pulse Rate Respiratory Rate Blood Pressure Pulse Oximetry 95 Intake & Output 05/07/18 05/08/18 05/08/18 18:59 06:59 18:59 Intake Total 1000 / 1000 1500 / 1500 1000 / 1000 Output Total 2400 / 2400 1500 / 1500 Balance -1400 / -1400 0 / 0 1000 / 1000 Weight 85 kg Intake: IV 1000 / 1000 1000 / 1000 1000 / 1000 NS Inj 1,000 ML @ 100 mls/hr IV 1000 / 1000 1000 / 1000 1000 / 1000 .CONT .Q10H TANYA Rx#:[id number] Oral 500 / 500 Output: Urine 2400 / 2400 1500 / 1500 Other: # Bowel Movements 0 Narrative: GENERAL: Awake alert and oriented x3 , appears in nad. CARDIOVASCULAR: Regular rate and rhythm. S1-S2 no S3 or S4 RESPIRATORY: No accessory muscle use. Clear to auscultation. Breath sounds equal bilaterally. GASTROINTESTINAL: Abdomen soft, non-tender, nondistended. Hepatic and splenic margins not palpable. MUSCULOSKELETAL: Extremities without clubbing, cyanosis, or edema. No obvious deformities. NEUROLOGICAL: Awake and alert. No obvious cranial nerve deficits. Motor grossly within normal limits. Five out of 5 muscle strength in the arms and legs. Normal speech. - Urinary Catheter Management Indwelling Urethral Catheter Cath placed during this visit: yes, but has since been removed by the nurse Reason for continuing: Decision to DC catheter Insertion date: 05/05/18 Insertion time: 21:59 Removal date: 05/06/18 Removal time: 08:22 Results - Labs CBC & Chem 7: 05/08/18 05:45 05/08/18 05:45 Laboratory Results - last 24 hr 05/07/18 05/08/18 05/08/18 06:33 05:45 05:45 WBC 4.6 RBC 3.97 L Hgb 12.4 Hct 36.0 MCV 90.8 MCH 31.3 MCHC 34.5 RDW 13.8 Plt Count 161 MPV 7.9 Neut % (Auto) 63.4 Lymph % (Auto) 28.0 [place] % (Auto) 6.6 Eos % (Auto) 1.1 Baso % (Auto) 0.9 Neut # (Auto) 2.9 Lymph # (Auto) 1.3 [place] # (Auto) 0.3 Eos # (Auto) 0.1 Baso # (Auto) 0.0 WBC Differential . Differential Comment Auto diff final Sodium 146 H Potassium 3.5 Chloride 113 H Carbon Dioxide 27.1 Anion Gap 6 BUN 4 L Creatinine 0.77 Estimated GFR 81 L Random Glucose 92 Hemoglobin A1c 5.7 Calcium 8.3 L Phosphorus 1.6 L Magnesium 2.1 Total Bilirubin 0.4 AST 239 H ALT 118 H Alkaline Phosphatase 81 Total Protein 6.6 D Albumin 3.3 L Free T4 0.81 Assessment and Plan - Plan 42-year-old female with: Encephalopathy secondary to overdose with Xanax/heroin/cocaine-slow improvement Acute respiratory failure-resolved Suspected prehospital aspiration-monitor labs Left-sided chest pain Rhabdomyolysis-continue IV fluids ANGELA-continue IV fluids Hypertension uncontrolled start clonidine scheduled and as need Plan: Neuro: Follow neuro status, avoid sedatives and narcotics. UDS positive for benzos and cocaine. Watch closely for withdrawal. Await psych consult Cardiovascular: IV hydration. Elevated d-dimer noted though this is nonspecific. Received therapeutic Lovenox yesterday. Check VQ scan to rule out PE Pulmonary: Weaned off BiPAP. Bronchodilators. CT chest without IV contrast - apical pleural thickening. VQ scan today GI/liver: Start regular diet Renal/: IV hydration, strict intake output, monitor and replete electrodes, follow BUN/creatinine. Discontinue Ritter ID: Concern for aspiration-CT chest negative. Hold off on antibiotics at this time. Endocrine: Watch for hypoglycemia, SSI for glycemic control if needed Prophylaxis: Pepcid. Increase activity, continue subcu Lovenox prophylactically Add physical therapy and Occupational Therapy Psychiatry has wanted to start Zoloft will start at 25 mg p.o. daily Still has rhabdomyolysis needs aggressive fluid rehydration still Still taking Ativan for withdrawal symptoms Code Status: Full code Discussed Condition With: RN and patient Discharge Planning: Once rhabdomyolysis is improved can be transferred to inpatient psychiatry
[2018-05-08 14:39] LABS: CKMB Percent 0.2 % (0.0-4.0); Creatine Kinase MB 8.1 ng/mL (0.5-3.6)
[2018-05-08 16:58] LABS: Hemoglobin A1c 5.5 % (4.3-6.0)
[2018-05-08] MEDS ORDERED: QUEtiapine 25 MG Tablet PO ONE (18:00)
[2018-05-09 04:08] LABS: Alanine Aminotransferase 100 U/L (10-53); Albumin 2.9 g/dL (3.4-5.0); Anion Gap 4 meq/L (5-15); Aspartate Aminotransferase 161 U/L (15-37); Blood Urea Nitrogen 7 mg/dL (7-18); Calcium 7.8 mg/dL (8.5-10.1); Carbon Dioxide 27.7 meq/L (21.0-32.0); Chloride 114 meq/L (98-107); Glomerular Filtration Rate 80 mL/min (>89); Glucose,Random 102 mg/dL (74-106); Potassium 3.9 meq/L (3.5-5.1); Sodium 146 meq/L (136-145)
[2018-05-09 04:22] LABS: Alkaline Phosphatase 68 U/L (45-117); Creatine Kinase 3810 U/L (26-192); Total Protein 5.9 g/dL (6.4-8.2)
[2018-05-09 04:39] LABS: CKMB Percent 0.1 % (0.0-4.0); Creatine Kinase MB 4.7 ng/mL (0.5-3.6)
[2018-05-09] MEDS: Chlorhexidine Gluconate 2% 1 Pack (2 Cloths) TOPICAL SCH (06:17)
[2018-05-09] MEDS: Sod Chloride 0.9% Inj 1,000 ML IV.CONT SCH ×2 (06:17→16:42)
[2018-05-09] MEDS: Famotidine PF Inj 20 MG/2 ML Vial IV.PUSH SCH ×2 (09:29→20:55)
[2018-05-09] MEDS: Sertraline 50 MG Tablet PO SCH (09:29)
[2018-05-09] MEDS: Senna/Docusate Sodium 8.6/50 MG Tablet PO SCH ×2 (09:29→20:55)
--- NOTE | 2018-05-09 15:58 | P.PN ---
Subjective Interval history: The patient is in bed she appears in not acute distress at this time. Patient complains of some back pain stomach pain radiated to the back. No nausea or vomiting she is able to eat. Was able to sit in the chair without any problems. No much of muscle pains and aches. No fever or chills. Physical Exam Vital signs: Vital Signs 05/08/18 16:00 05/08/18 18:00 05/08/18 20:00 Temperature 98.7 F 98.7 F Pulse Rate 63 66 66 Respiratory Rate 27 H 33 H Blood Pressure 152/98 H 137/75 Pulse Oximetry 96 95 05/08/18 20:30 05/08/18 22:00 05/08/18 23:46 Temperature Pulse Rate 71 Respiratory Rate Blood Pressure Pulse Oximetry 95 97 05/09/18 00:00 05/09/18 02:00 05/09/18 04:00 Temperature 98.0 F 97.0 F L Pulse Rate 63 61 62 Respiratory Rate 21 16 Blood Pressure 108/62 119/61 Pulse Oximetry 96 98 05/09/18 06:00 05/09/18 08:00 05/09/18 10:00 Temperature 98.0 F Pulse Rate 63 61 81 Respiratory Rate 23 Blood Pressure 149/77 H Pulse Oximetry 93 L 05/09/18 12:00 05/09/18 14:00 05/09/18 14:06 Temperature 98.3 F Pulse Rate 61 67 Respiratory Rate 16 8 L Blood Pressure 165/83 H Pulse Oximetry 97 Intake & Output 05/08/18 05/09/18 05/09/18 18:59 06:59 18:59 Intake Total 1720 / 1720 2300 / 2300 Output Total 1600 / 1600 1500 / 1500 Balance 120 / 120 800 / 800 Weight 85 kg Intake: IV 1000 / 1000 1999 / 1999 NS Inj 1,000 ML @ 100 mls/hr IV 1000 / 1000 1999 .CONT .Q10H [facility] Rx#:[id number] Oral 720 / 720 300 / 300 Output: Urine 1600 / 1600 1500 / 1500 Stool 0 / 0 Urine/Stool Mix 0 / 0 Other: # Voids 3 Date of Last Bowel Movement 05/08/18 05/08/18 05/08/18 # Bowel Movements 1 0 # Incontinent Bowel Movements 0 Narrative: GENERAL: Awake alert and oriented x3 , appears in nad. CARDIOVASCULAR: Regular rate and rhythm. S1-S2 no S3 or S4 RESPIRATORY: No accessory muscle use. Clear to auscultation. Breath sounds equal bilaterally. GASTROINTESTINAL: Abdomen soft, non-tender, nondistended. Hepatic and splenic margins not palpable. MUSCULOSKELETAL: Extremities without clubbing, cyanosis, or edema. No obvious deformities. NEUROLOGICAL: Awake and alert. No obvious cranial nerve deficits. Motor grossly within normal limits. Five out of 5 muscle strength in the arms and legs. Normal speech. - Urinary Catheter Management Indwelling Urethral Catheter Cath placed during this visit: yes, but has since been removed by the nurse Reason for continuing: Decision to DC catheter Insertion date: 05/05/18 Insertion time: 21:59 Removal date: 05/06/18 Removal time: 08:22 Results - Labs CBC & Chem 7: 05/08/18 05:45 05/09/18 03:30 Laboratory Results - last 24 hr 05/08/18 05/09/18 05:45 03:30 Sodium 146 H Potassium 3.9 Chloride 114 H Carbon Dioxide 27.7 Anion Gap 4 L BUN 7 Creatinine 0.78 Estimated GFR 80 L Random Glucose 102 Hemoglobin A1c 5.5 Calcium 7.8 L Total Bilirubin 0.3 AST 161 H ALT 100 H Alkaline Phosphatase 68 Total Creatine Kinase 3810 H CK-MB (CK-2) 4.7 H CK-MB (CK-2) % 0.1 Total Protein 5.9 L D Albumin 2.9 L Assessment and Plan - Plan 42-year-old female with: Encephalopathy secondary to overdose with Xanax/heroin/cocaine-slow improvement Acute respiratory failure-resolved Suspected prehospital aspiration-monitor labs Left-sided chest pain Rhabdomyolysis-continue IV fluids ANGELA-continue IV fluids Hypertension uncontrolled start clonidine scheduled and as need Plan: Neuro: Follow neuro status, avoid sedatives and narcotics. UDS positive for benzos and cocaine. Watch closely for withdrawal. Await psych consult Cardiovascular: IV hydration. Elevated d-dimer noted though this is nonspecific. Received therapeutic Lovenox yesterday. Check VQ scan to rule out PE Pulmonary: Weaned off BiPAP. Bronchodilators. CT chest without IV contrast - apical pleural thickening. VQ scan today GI/liver: Start regular diet Renal/: IV hydration, strict intake output, monitor and replete electrodes, follow BUN/creatinine. Discontinue Ritter ID: Concern for aspiration-CT chest negative. Hold off on antibiotics at this time. Endocrine: Watch for hypoglycemia, SSI for glycemic control if needed Prophylaxis: Pepcid. Increase activity, continue subcu Lovenox prophylactically Add physical therapy and Occupational Therapy Psychiatry has wanted to start Zoloft will start at 25 mg p.o. daily Still has rhabdomyolysis needs aggressive fluid rehydration still Still taking Ativan for withdrawal symptoms Will check lipase pain radiating to the Code Status: Full code Discussed Condition With: RN and patient Discharge Planning: Once rhabdomyolysis is improved can be transferred to inpatient psychiatry CPK improving and also liver function tests improving possible discharge to inpatient psych 1 to days
[2018-05-10] MEDS: Sod Chloride 0.9% Inj 1,000 ML IV.CONT SCH ×4 (02:22→23:29)
[2018-05-10] MEDS: Chlorhexidine Gluconate 2% 1 Pack (2 Cloths) TOPICAL SCH (05:30)
[2018-05-10 07:07] LABS: Albumin 2.9 g/dL (3.4-5.0); Anion Gap 7 meq/L (5-15); Aspartate Aminotransferase 119 U/L (15-37); Blood Urea Nitrogen 8 mg/dL (7-18); Chloride 109 meq/L (98-107); Glomerular Filtration Rate 75 mL/min (>89); Glucose,Random 81 mg/dL (74-106); Lipase 167 U/L (73-393); Potassium 3.5 meq/L (3.5-5.1); Sodium 144 meq/L (136-145)
[2018-05-10 07:08] LABS: Alanine Aminotransferase 93 U/L (10-53)
[2018-05-10 07:22] LABS: Alkaline Phosphatase 71 U/L (45-117); Creatine Kinase 2246 U/L (26-192); Total Protein 6.1 g/dL (6.4-8.2)
[2018-05-10 07:49] LABS: CKMB Percent 0.1 % (0.0-4.0); Creatine Kinase MB 2.6 ng/mL (0.5-3.6)
[2018-05-10] MEDS: Famotidine PF Inj 20 MG/2 ML Vial IV.PUSH SCH ×2 (09:24→20:03)
[2018-05-10] MEDS: Sertraline 50 MG Tablet PO SCH (09:24)
[2018-05-10] MEDS: Senna/Docusate Sodium 8.6/50 MG Tablet PO SCH ×2 (09:25→20:04)
--- NOTE | 2018-05-10 18:19 | P.PN ---
Subjective Interval history: The patient was seen earlier today Doesn't appear in acute distress. Has muscle pain, however CPK is improving No n/v/d/c. Not eatign much encourage PO intake and hydration Also family did visit later Physical Exam Vital signs: Vital Signs 05/09/18 19:00 05/09/18 20:00 05/09/18 20:15 Temperature 98.9 F Pulse Rate 56 L 78 65 Respiratory Rate 20 36 H 37 H Blood Pressure 165/88 H 187/113 H 187/113 H Pulse Oximetry 91 L 96 05/09/18 20:34 05/09/18 20:50 05/09/18 20:51 Temperature Pulse Rate 61 72 Respiratory Rate 30 H 44 H Blood Pressure 191/117 H 170/81 H Pulse Oximetry 95 90 L 95 05/09/18 21:00 05/09/18 21:31 05/09/18 22:00 Temperature Pulse Rate 61 51 L 78 Respiratory Rate 30 H 17 46 H Blood Pressure 170/84 H 152/81 H Pulse Oximetry 95 95 93 L 05/09/18 22:31 05/09/18 23:00 05/09/18 23:33 Temperature Pulse Rate 47 L 73 53 L Respiratory Rate 23 27 H 28 H Blood Pressure 156/80 H 140/78 137/79 Pulse Oximetry 97 97 98 05/10/18 00:00 05/10/18 00:01 05/10/18 00:30 Temperature 98.7 F Pulse Rate 70 55 L 56 L Respiratory Rate 31 H 24 16 Blood Pressure 129/59 L 144/78 H Pulse Oximetry 95 98 96 05/10/18 01:00 05/10/18 01:30 05/10/18 02:00 Temperature Pulse Rate 57 L 57 L 79 Respiratory Rate 15 14 44 H Blood Pressure 139/67 149/81 H Pulse Oximetry 95 96 85 L 05/10/18 02:05 05/10/18 02:31 05/10/18 03:00 Temperature Pulse Rate 60 55 L 76 Respiratory Rate 28 H 38 H 37 H Blood Pressure 178/81 H 176/88 H Pulse Oximetry 98 99 97 05/10/18 03:01 05/10/18 03:30 05/10/18 04:00 Temperature Pulse Rate 71 72 60 Respiratory Rate 31 H 24 15 Blood Pressure 120/66 124/78 149/82 H Pulse Oximetry 97 96 96 05/10/18 06:00 05/10/18 08:00 05/10/18 10:00 Temperature 99 F Pulse Rate 61 59 L 66 Respiratory Rate 24 Blood Pressure 154/78 H Pulse Oximetry 94 L 05/10/18 12:00 05/10/18 14:00 05/10/18 16:00 Temperature 98.9 F Pulse Rate 55 L 83 77 Respiratory Rate 15 Blood Pressure 148/75 H Pulse Oximetry 94 L Intake & Output 05/09/18 05/10/18 05/10/18 18:59 06:59 18:59 Intake Total 1400 / 1400 1400 / 1400 1000 / 1000 Output Total 1400 / 1400 1400 / 1400 Balance 0 / 0 0 / 0 1000 / 1000 Weight 77.5 kg Intake: IV 1000 / 1000 1000 / 1000 1000 / 1000 NS Inj 1,000 ML @ 100 mls/hr IV 1000 / 1000 1000 / 1000 1000 / 1000 .CONT .Q10H [facility] Rx#:[id number] Oral 400 / 400 400 / 400 Output: Urine 1400 / 1400 1400 / 1400 Other: Date of Last Bowel Movement 05/09/18 05/09/18 05/09/18 # Bowel Movements 2 2 Narrative: GENERAL: Awake alert and oriented x3 , appears in nad. CARDIOVASCULAR: Regular rate and rhythm. S1-S2 no S3 or S4 RESPIRATORY: No accessory muscle use. Clear to auscultation. Breath sounds equal bilaterally. GASTROINTESTINAL: Abdomen soft, non-tender, nondistended. Hepatic and splenic margins not palpable. MUSCULOSKELETAL: Extremities without clubbing, cyanosis, or edema. No obvious deformities. NEUROLOGICAL: Awake and alert. No obvious cranial nerve deficits. Motor grossly within normal limits. Five out of 5 muscle strength in the arms and legs. Normal speech. - Urinary Catheter Management Indwelling Urethral Catheter Cath placed during this visit: yes, but has since been removed by the nurse Reason for continuing: Decision to DC catheter Insertion date: 05/05/18 Insertion time: 21:59 Removal date: 05/06/18 Removal time: 08:22 Results - Labs CBC & Chem 7: 05/08/18 05:45 05/10/18 05:05 Laboratory Results - last 24 hr 05/10/18 05:05 Sodium 144 Potassium 3.5 Chloride 109 H Carbon Dioxide 28.0 Anion Gap 7 BUN 8 Creatinine 0.83 Estimated GFR 75 L Random Glucose 81 Calcium 8.0 L Total Bilirubin 0.3 AST 119 H ALT 93 H Alkaline Phosphatase 71 Total Creatine Kinase 2246 H CK-MB (CK-2) 2.6 CK-MB (CK-2) % 0.1 Total Protein 6.1 L Albumin 2.9 L Lipase 167 Assessment and Plan - Plan 42-year-old female with: Encephalopathy secondary to overdose with Xanax/heroin/cocaine-slow improvement Acute respiratory failure-resolved Suspected prehospital aspiration-monitor labs Left-sided chest pain Rhabdomyolysis-continue IV fluids ANGELA-continue IV fluids Hypertension uncontrolled start clonidine scheduled and as need Plan: Neuro: Follow neuro status, avoid sedatives and narcotics. UDS positive for benzos and cocaine. Watch closely for withdrawal. Await psych consult Cardiovascular: IV hydration. Elevated d-dimer noted though this is nonspecific. Received therapeutic Lovenox yesterday. Check VQ scan to rule out PE Pulmonary: Weaned off BiPAP. Bronchodilators. CT chest without IV contrast - apical pleural thickening. VQ scan today GI/liver: Start regular diet Renal/: IV hydration, strict intake output, monitor and replete electrodes, follow BUN/creatinine. Discontinue Ritter ID: Concern for aspiration-CT chest negative. Hold off on antibiotics at this time. Endocrine: Watch for hypoglycemia, SSI for glycemic control if needed Prophylaxis: Pepcid. Increase activity, continue subcu Lovenox prophylactically Add physical therapy and Occupational Therapy Psychiatry has wanted to start Zoloft will start at 25 mg p.o. daily Still has rhabdomyolysis needs aggressive fluid rehydration still Still taking Ativan for withdrawal symptoms Will check lipase pain radiating to the Code Status: Full code Discussed Condition With: RN and patient Discharge Planning: Once rhabdomyolysis is improved can be transferred to inpatient psychiatry CPK improving and also liver function tests improving possible discharge to inpatient psych 1 to days
[2018-05-11] MEDS: Senna/Docusate Sodium 8.6/50 MG Tablet PO SCH ×2 (08:45→20:06)
[2018-05-11] MEDS: Sertraline 50 MG Tablet PO SCH (08:46)
[2018-05-11] MEDS: Famotidine PF Inj 20 MG/2 ML Vial IV.PUSH SCH ×2 (08:46→20:06)
[2018-05-11] MEDS: amLODIPine 5 MG Tablet PO SCH (10:44)
--- NOTE | 2018-05-11 11:09 | P.DS ---
Date of admission: 05/05/18 21:24 Primary care physician: UNKNOWN Brief History from admission: 42-year-old female who was brought to the ER after being found unresponsive on her couch with emesis around her mouth mother. Patient reportedly has a history of overdose previously. When police arrived at her house patient was brought to the however was arousable and refusing any medical care. She was Pack acted and brought to the ER. She admitted to overdose on heroin/cocaine and Xanax which she had snorted. Her O2 sats were 84% on room air on arrival and improved to the 90s with nasal cannula 3 L. Patient was extremely lethargic however arousable following arrival in the ER. She had labs done in was initiated on BiPAP. Patient was accepted for admission by critical care medicine service. She was noted to be in renal failure with rhabdomyolysis. She is also complaining of left-sided chest pain posteriorly towards her back which she stated was going on for a few weeks. When I evaluated her in the ER she was drowsy though arousable tolerating BiPAP full face mask. Urine tox screen was pending at the time of my evaluation. DS: Summary Hospital Course: 42-year-old female admitted on 05/05/2018 following an overdose of cocaine, heroin, Xanax that was apparently intentional as a suicide attempt. She has a history of previous overdose and suicide attempt. Her breathing was impaired and she required BiPAP to maintain saturations greater than 90. At home she was lethargic with saturations around 84%. Laboratory workup revealed rhabdomyolysis and she was started on IV therapy. She complained of left-sided chest pain, but workup,both cardiac and pulmonary, did not reveal any life- threatening conditions. Today her CK has reduced nicely to a level of approximately 2000. She denies any ongoing symptoms. She has sobered up and has insight into her mistakes, she understands she is on Pack act and would like to proceed to psychiatry for psychiatric clearance so that she can eventually go home. My recommendation to her and to medical staff is that she should be allowed generous fluid intake over the next week. CK level can be followed periodically at this time to monitor for a final downward trend to normal. She is medically cleared for admission to psychiatry. - Time Spent with Patient Total time spent providing and/or coordinating discharge services: Less than 30 minutes - Quality: VTE Deep Vein Thrombosis/Pulmonary Embolism Present on Admission: No Exam Vital signs: Vital Signs 05/10/18 12:00 05/10/18 14:00 05/10/18 16:00 Temperature 98.9 F 98.4 F Pulse Rate 55 L 83 72 Respiratory Rate 15 21 Blood Pressure 148/75 H 113/79 Pulse Oximetry 94 L 94 L 05/10/18 16:01 05/10/18 18:00 05/10/18 19:00 Temperature Pulse Rate 73 83 73 Respiratory Rate 65 H 15 Blood Pressure 127/76 Pulse Oximetry 96 93 L 05/10/18 19:31 05/10/18 20:00 05/10/18 20:01 Temperature 99.3 F Pulse Rate 82 67 67 Respiratory Rate 32 H 24 26 H Blood Pressure 144/91 H 155/80 H Pulse Oximetry 94 L 96 96 05/10/18 20:30 05/10/18 21:00 05/10/18 21:01 Temperature Pulse Rate 50 L 48 L 49 L Respiratory Rate 15 16 16 Blood Pressure 167/81 H 155/79 H Pulse Oximetry 95 95 95 05/10/18 21:31 05/10/18 22:00 05/10/18 22:31 Temperature Pulse Rate 55 L 43 L 46 L Respiratory Rate 20 29 H 15 Blood Pressure 167/83 H 163/83 H 169/79 H Pulse Oximetry 100 99 99 05/10/18 23:00 05/10/18 23:31 05/11/18 00:00 Temperature Pulse Rate 49 L 48 L 46 L Respiratory Rate 19 17 16 Blood Pressure 183/86 H 164/87 H Pulse Oximetry 99 96 97 05/11/18 00:01 05/11/18 00:31 05/11/18 01:00 Temperature Pulse Rate 60 52 L 51 L Respiratory Rate 26 H 23 19 Blood Pressure 147/67 H 211/99 H Pulse Oximetry 96 95 94 L 05/11/18 02:00 05/11/18 02:06 05/11/18 03:00 Temperature Pulse Rate 55 L 67 48 L Respiratory Rate 32 H 48 H 27 H Blood Pressure 125/81 Pulse Oximetry 96 94 L 98 05/11/18 03:34 05/11/18 04:00 05/11/18 06:00 Temperature 98.9 F Pulse Rate 60 50 L 52 L Respiratory Rate 29 H 18 Blood Pressure 165/85 H Pulse Oximetry 96 05/11/18 08:43 Temperature Pulse Rate Respiratory Rate Blood Pressure Pulse Oximetry 97 Intake & Output 05/10/18 05/11/18 05/11/18 18:59 06:59 18:59 Intake Total 1600 / 1600 1400 / 1400 Output Total 1600 / 1600 1200 / 1200 Balance 0 / 0 200 / 200 Weight 79.5 kg Intake: IV 1000 / 1000 1000 / 1000 NS Inj 1,000 ML @ 100 mls/hr IV 1000 / 1000 1000 / 1000 .CONT .Q10H [facility] Rx#:[id number] Oral 600 / 600 400 / 400 Output: Urine 1600 / 1600 1200 / 1200 Stool 0 / 0 Urine/Stool Mix 0 / 0 Other: # Voids 3 Date of Last Bowel Movement 05/09/18 05/09/18 # Bowel Movements 2 0 # Incontinent Bowel Movements 0 Results Procedures completed during hospitalization: none - Impressions ITS Impressions Head CT 05/05/18 00:00 CONCLUSION: 1. Negative for an acute process. . Chest X-Ray 05/05/18 19:29 CONCLUSION: Under aerated with mild interstitial edema. Chest CT 05/05/18 21:40 CONCLUSION: 1. Asymmetrical apical pleural thickening 2. Lack of intravenous contrast makes detection of subtle pulmonary emboli difficult. Pulmonary Perfusion Imaging 05/06/18 00:00 CONCLUSION: 1. Low probability VQ scan. Venous Doppler Study 05/06/18 00:00 CONCLUSION: 1. The study is negative for bilateral lower extremity deep venous thrombosis. Discharge Plan - Discharge Disposition Patient Disposition: 63 Disc To [facility] Facility - Discharge Condition Condition: Good - Discharge Order Discharge Orders: Discharge Order (Routine); Ordered 05/11/18 Ordered By: Branden Castorena - Discharge Details Discharge Comment: Continue generous PO fluids for tail end treatment of rhabdomyolysis. Follow CK. - Physicians Team Primary Care Provider: UNKNOWN, Attending Provider: Branden Castorena Other Providers: Ramesh Joyce MD
[2018-05-12] MEDS: Sertraline 50 MG Tablet PO SCH (08:04)
[2018-05-12] MEDS: Senna/Docusate Sodium 8.6/50 MG Tablet PO SCH ×2 (08:04→20:09)
[2018-05-12] MEDS: Famotidine PF Inj 20 MG/2 ML Vial IV.PUSH SCH ×2 (08:05→20:09)
[2018-05-12] MEDS: amLODIPine 5 MG Tablet PO SCH (08:06)
--- NOTE | 2018-05-12 11:33 | P.PNIM ---
Subjective Interval history: Patient is pleasant to speak with, she is here under Pack act for intentional overdose. She has been medically cleared for transfer to [facility], though no beds have been available lately. She seems to have good insight into her cascade of events, realizes her mistake, interested in accepting help and outpatient follow -up. Physical Exam Vital signs: Vital Signs 05/11/18 12:00 05/11/18 13:00 05/11/18 13:42 Temperature 98.8 F Pulse Rate 92 H 78 72 Respiratory Rate 30 H 18 33 H Blood Pressure 153/100 H Pulse Oximetry 96 05/11/18 13:48 05/11/18 14:00 05/11/18 15:01 Temperature Pulse Rate 65 86 Respiratory Rate 33 H 23 Blood Pressure 144/87 H Pulse Oximetry 95 05/11/18 16:00 05/11/18 16:01 05/11/18 17:00 Temperature Pulse Rate 55 L 59 L Respiratory Rate 19 19 Blood Pressure 163/85 H Pulse Oximetry 93 L 92 L 97 05/11/18 17:15 05/11/18 18:00 05/11/18 18:03 Temperature 98.9 F Pulse Rate 73 60 85 Respiratory Rate 15 27 H Blood Pressure 157/90 H Pulse Oximetry 94 L 94 L 05/11/18 19:00 05/11/18 20:00 05/11/18 21:00 Temperature 98.1 F Pulse Rate 65 72 62 Respiratory Rate 21 28 H 1 L Blood Pressure 165/102 H Pulse Oximetry 94 L 91 L 100 05/11/18 22:00 05/11/18 23:00 05/12/18 00:00 Temperature 98.2 F Pulse Rate 61 66 60 Respiratory Rate 19 26 H 13 Blood Pressure 153/80 H 132/69 Pulse Oximetry 94 L 96 91 L 05/12/18 01:00 05/12/18 02:00 05/12/18 02:01 Temperature Pulse Rate 48 L 51 L 50 L Respiratory Rate 10 L 13 18 Blood Pressure 120/57 L Pulse Oximetry 98 100 100 05/12/18 03:00 05/12/18 04:00 05/12/18 05:00 Temperature 98.5 F Pulse Rate 60 64 51 L Respiratory Rate 11 L 17 15 Blood Pressure 107/70 Pulse Oximetry 92 L 98 99 05/12/18 06:00 05/12/18 07:00 05/12/18 08:00 Temperature Pulse Rate 63 55 L 72 Respiratory Rate 17 13 32 H Blood Pressure 98/57 L Pulse Oximetry 95 94 L 97 05/12/18 08:16 05/12/18 09:00 05/12/18 09:43 Temperature 98.2 F Pulse Rate 69 80 Respiratory Rate 43 H 33 H Blood Pressure 116/86 Pulse Oximetry 98 96 05/12/18 10:00 05/12/18 10:29 Temperature Pulse Rate 63 73 Respiratory Rate 14 35 H Blood Pressure 124/86 Pulse Oximetry Intake & Output 05/11/18 05/12/18 05/12/18 18:59 06:59 18:59 Intake Total 600 / 600 400 / 400 Output Total 1400 / 1400 800 / 800 Balance -800 / -800 -400 / -400 Weight 76 kg Intake: Oral 600 / 600 400 / 400 Output: Urine 1400 / 1400 800 / 800 Other: Date of Last Bowel Movement 05/11/18 05/11/18 05/11/18 # Bowel Movements 1 0 Narrative: GENERAL: AAOx3, no acute distress SKIN: Warm and dry. No rashes HEAD: Atruamtic, normocephalic. EYES: No scleral icterus. No injection or drainage. ENT: Moist mucous membranes, patent nares, no erythema of oropharynx. NECK: Supple, trachea midline. No JVD or lymphadenopathy. Normal thyroid. CARDIOVASCULAR: Regular rate and rhythm. No murmurs, gallops, or rubs. RESPIRATORY: Breath sounds clear equal bilaterally. No crackles or wheezes. No accessory muscle use. GASTROINTESTINAL: Abdomen soft, non-tender, nondistended, normal active bowel sounds MUSCULOSKELETAL: No cyanosis, or edema. NEURO: CN II-XII grossly intact, no focal deficits, no slurring of speech - Urinary Catheter Management Indwelling Urethral Catheter Cath placed during this visit: yes, but has since been removed by the nurse Reason for continuing: Decision to DC catheter Insertion date: 05/05/18 Insertion time: 21:59 Removal date: 05/06/18 Removal time: 08:22 Results - Labs CBC & Chem 7: 05/08/18 05:45 05/10/18 05:05 - Procedures none Assessment and Plan - Plan Intentional overdose, depression Presented with altered mental status and respiratory failure secondary to overdose with Xanax, heroin, cocaine She has good insight, admits she made mistakes, interested in accepting help and following up as outpatient No further signs of chemical withdrawal Continue Zoloft, continue Ativan as needed Psych is reconsulted Rhabdomyolysis Reasonable decline into the 1999 Encourage p.o. fluids Follow periodic CK and creatinine levels DVT prophylaxis Patient is ambulatory
[2018-05-12] MEDS ORDERED: Sertraline 50 MG Tablet PO SCH (18:23)
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
[2018-05-13 07:30] LABS: Alanine Aminotransferase 76 U/L (10-53); Albumin 3.5 g/dL (3.4-5.0); Alkaline Phosphatase 71 U/L (45-117); Anion Gap 8 meq/L (5-15); Aspartate Aminotransferase 54 U/L (15-37); Blood Urea Nitrogen 11 mg/dL (7-18); Calcium 8.6 mg/dL (8.5-10.1); Carbon Dioxide 29.6 meq/L (21.0-32.0); Chloride 104 meq/L (98-107); Creatine Kinase 428 U/L (26-192); Glomerular Filtration Rate 83 mL/min (>89); Glucose,Random 84 mg/dL (74-106); Potassium 3.3 meq/L (3.5-5.1); Sodium 142 meq/L (136-145); Total Protein 6.8 g/dL (6.4-8.2)
[2018-05-13 08:08] LABS: CKMB Percent 0.2 % (0.0-4.0)
[2018-05-13] MEDS: Senna/Docusate Sodium 8.6/50 MG Tablet PO SCH (08:44)
[2018-05-13] MEDS: amLODIPine 5 MG Tablet PO SCH (08:44)
[2018-05-13] MEDS: Famotidine PF Inj 20 MG/2 ML Vial IV.PUSH SCH (08:44)
[2018-05-13 10:53] VITALS: BP 135/95; PULSE 72; RESP 23; TEMP 97.6; O2SAT 96
--- NOTE | 2018-05-13 11:29 | P.PNIM ---
Subjective Interval history: 42-year-old female who was brought to the ER after being found unresponsive on her couch with emesis around her mouth. Patient reportedly has a history of overdose previously. When police arrived at her house patient was brought to the however was arousable and refusing any medical care. She was Pack acted and brought to the ER. She admitted to overdose on heroin/cocaine and Xanax which she had snorted. Her O2 sats were 84% on room air on arrival and improved to the 90s with nasal cannula 3 L. Patient was extremely lethargic however arousable following arrival in the ER. She had labs done in was initiated on BiPAP. Patient was accepted for admission by critical care medicine service. She was noted to be in renal failure with rhabdomyolysis. She is also complaining of left-sided chest pain posteriorly towards her back which she stated was going on for a few weeks. When I evaluated her in the ER she was drowsy though arousable tolerating BiPAP full face mask. Urine tox screen was pending at the time of my evaluation. SUBJ 05/06: Patient is awake alert sitting up in bed. Denies any shortness of breath however tearful. Admits to intentional overdose. Psych consult is pending at this time. CPK increased to 7000 today. Potassium is 4.9 I will change IV fluid to normal saline without potassium at 100 mL/h 10-16 patient has been transferred to our service today. From the critical care service. Patient still noted to have rhabdomyolysis Still needs to be on fluids Still needs a sitter Continue with IV fluids A.m. labs PT and OT to eval and treat Discussed with RN and patient 17 Complains of back pain. Her blood pressures also elevated says she is taking clonidine. No shortness of breath or chest pain. No nausea or vomiting. However not eating much. No palpitations. Keep in ICU at this time until rhabdomyolysis improved 10-18 The patient is in bed she appears in not acute distress at this time. Patient complains of some back pain stomach pain radiated to the back. No nausea or vomiting she is able to eat. Was able to sit in the chair without any problems. No much of muscle pains and aches. No fever or chills. 10-19 The patient was seen earlier today Doesn't appear in acute distress. Has muscle pain, however CPK is improving No n/v/d/c. Not eatign much encourage PO intake and hydration Also family did visit later 05-11 CLEARED FOR DC NO BED AVAILABLE 05-12 Patient is pleasant to speak with, she is here under Pack act for intentional overdose. She has been medically cleared for transfer to [facility], though no beds have been available lately. She seems to have good insight into her cascade of events, realizes her mistake, interested in accepting help and outpatient follow-up. 05-13 GOING TO IN PSYCHIATRY TODAY DW RN AND PT Physical Exam Vital signs: Vital Signs 05/12/18 12:00 05/12/18 12:42 05/12/18 13:00 Temperature Pulse Rate 59 L 75 76 Respiratory Rate 11 L 30 H 24 Blood Pressure 135/85 Pulse Oximetry 05/12/18 14:00 05/12/18 15:00 05/12/18 16:00 Temperature Pulse Rate 80 90 76 Respiratory Rate 22 43 H 18 Blood Pressure Pulse Oximetry 05/12/18 16:11 05/12/18 17:00 05/12/18 18:00 Temperature Pulse Rate 81 64 74 Respiratory Rate 30 H 28 H 37 H Blood Pressure 142/94 H Pulse Oximetry 05/12/18 19:00 05/12/18 20:00 05/12/18 20:06 Temperature 98.7 F Pulse Rate 64 69 66 Respiratory Rate 32 H 23 26 H Blood Pressure 138/86 138/86 Pulse Oximetry 95 94 L 05/12/18 21:00 05/12/18 22:00 05/12/18 23:00 Temperature Pulse Rate 65 67 73 Respiratory Rate 13 14 18 Blood Pressure Pulse Oximetry 90 L 93 L 93 L 05/13/18 00:00 05/13/18 00:01 05/13/18 00:32 Temperature 98.5 F Pulse Rate 80 80 Respiratory Rate 37 H 23 18 Blood Pressure 133/88 133/88 Pulse Oximetry 96 92 L 05/13/18 01:00 05/13/18 02:00 05/13/18 03:00 Temperature Pulse Rate 63 60 58 L Respiratory Rate 13 14 13 Blood Pressure Pulse Oximetry 95 94 L 96 05/13/18 04:00 05/13/18 05:00 05/13/18 06:00 Temperature 98.5 F 98.4 F Pulse Rate 60 62 55 L Respiratory Rate 13 13 13 Blood Pressure 132/83 Pulse Oximetry 96 97 95 05/13/18 06:29 05/13/18 07:00 05/13/18 08:00 Temperature 97.6 F Pulse Rate 67 62 60 Respiratory Rate 46 H 15 16 Blood Pressure 132/83 Pulse Oximetry 97 96 96 05/13/18 09:01 05/13/18 09:04 05/13/18 10:00 Temperature Pulse Rate 91 H 83 72 Respiratory Rate 14 16 23 Blood Pressure 135/95 H Pulse Oximetry Intake & Output 05/12/18 05/13/18 05/13/18 18:59 06:59 18:59 Intake Total 480 / 480 Balance 480 / 480 Weight 76 kg Intake: Oral 480 / 480 Other: # Voids 5 4 Date of Last Bowel Movement 05/12/18 05/11/18 # Bowel Movements 1 Narrative: GENERAL: AAOx3, no acute distress SKIN: Warm and dry. No rashes HEAD: Atruamtic, normocephalic. EYES: No scleral icterus. No injection or drainage. ENT: Moist mucous membranes, patent nares, no erythema of oropharynx. NECK: Supple, trachea midline. No JVD or lymphadenopathy. Normal thyroid. CARDIOVASCULAR: Regular rate and rhythm. No murmurs, gallops, or rubs. RESPIRATORY: Breath sounds clear equal bilaterally. No crackles or wheezes. No accessory muscle use. GASTROINTESTINAL: Abdomen soft, non-tender, nondistended, normal active bowel sounds MUSCULOSKELETAL: No cyanosis, or edema. NEURO: CN II-XII grossly intact, no focal deficits, no slurring of speech - Urinary Catheter Management Indwelling Urethral Catheter Cath placed during this visit: yes, but has since been removed by the nurse Reason for continuing: Decision to DC catheter Insertion date: 05/05/18 Insertion time: 21:59 Removal date: 05/06/18 Removal time: 08:22 Results - Labs CBC & Chem 7: 05/08/18 05:45 05/13/18 05:27 Laboratory Results - last 24 hr 05/13/18 05:27 Sodium 142 Potassium 3.3 L Chloride 104 Carbon Dioxide 29.6 Anion Gap 8 BUN 11 Creatinine 0.76 Estimated GFR 83 L Random Glucose 84 Calcium 8.6 Total Bilirubin 0.5 AST 54 H ALT 76 H Alkaline Phosphatase 71 Total Creatine Kinase 428 H CK-MB (CK-2) Less than 1.0 CK-MB (CK-2) % 0.2 Total Protein 6.8 D Albumin 3.5 - Imaging ITS Impressions Head CT 05/05/18 00:00 CONCLUSION: 1. Negative for an acute process. . Chest X-Ray 05/05/18 19:29 CONCLUSION: Under aerated with mild interstitial edema. Chest CT 05/05/18 21:40 CONCLUSION: 1. Asymmetrical apical pleural thickening 2. Lack of intravenous contrast makes detection of subtle pulmonary emboli difficult. Pulmonary Perfusion Imaging 05/06/18 00:00 CONCLUSION: 1. Low probability VQ scan. Venous Doppler Study 05/06/18 00:00 CONCLUSION: 1. The study is negative for bilateral lower extremity deep venous thrombosis. - Procedures none Assessment and Plan - Plan Intentional overdose, depression Presented with altered mental status and respiratory failure secondary to overdose with Xanax, heroin, cocaine She has good insight, admits she made mistakes, interested in accepting help and following up as outpatient No further signs of chemical withdrawal Continue Zoloft, continue Ativan as needed Psych is reconsulted Rhabdomyolysis Reasonable decline into the 1999 Encourage p.o. fluids Follow periodic CK and creatinine levels DVT prophylaxis Patient is ambulatory Code Status: FULL CODE Discussed Condition With: RN AND PT Discharge Planning: DC TO INPT PSYCHIATRY TODAY
--- NOTE | 2018-05-13 11:32 | P.DS ---
Date of admission: 05/05/18 21:24 Primary care physician: UNKNOWN Attending physician on discharge: Juan Grayson Anticipated date of discharge: 05/13/18 Brief History from admission: 42-year-old female who was brought to the ER after being found unresponsive on her couch with emesis around her mouth mother. Patient reportedly has a history of overdose previously. When police arrived at her house patient was brought to the however was arousable and refusing any medical care. She was Pack acted and brought to the ER. She admitted to overdose on heroin/cocaine and Xanax which she had snorted. Her O2 sats were 84% on room air on arrival and improved to the 90s with nasal cannula 3 L. Patient was extremely lethargic however arousable following arrival in the ER. She had labs done in was initiated on BiPAP. Patient was accepted for admission by critical care medicine service. She was noted to be in renal failure with rhabdomyolysis. She is also complaining of left-sided chest pain posteriorly towards her back which she stated was going on for a few weeks. When I evaluated her in the ER she was drowsy though arousable tolerating BiPAP full face mask. Urine tox screen was pending at the time of my evaluation. Patient update on day of discharge: 42-year-old female who was brought to the ER after being found unresponsive on her couch with emesis around her mouth. Patient reportedly has a history of overdose previously. When police arrived at her house patient was brought to the however was arousable and refusing any medical care. She was Pack acted and brought to the ER. She admitted to overdose on heroin/cocaine and Xanax which she had snorted. Her O2 sats were 84% on room air on arrival and improved to the 90s with nasal cannula 3 L. Patient was extremely lethargic however arousable following arrival in the ER. She had labs done in was initiated on BiPAP. Patient was accepted for admission by critical care medicine service. She was noted to be in renal failure with rhabdomyolysis. She is also complaining of left-sided chest pain posteriorly towards her back which she stated was going on for a few weeks. When I evaluated her in the ER she was drowsy though arousable tolerating BiPAP full face mask. Urine tox screen was pending at the time of my evaluation. SUBJ 05/06: Patient is awake alert sitting up in bed. Denies any shortness of breath however tearful. Admits to intentional overdose. Psych consult is pending at this time. CPK increased to 7000 today. Potassium is 4.9 I will change IV fluid to normal saline without potassium at 100 mL/h 05-07 patient has been transferred to our service today. From the critical care service. Patient still noted to have rhabdomyolysis Still needs to be on fluids Still needs a sitter Continue with IV fluids A.m. labs PT and OT to eval and treat Discussed with RN and patient 05-08 Complains of back pain. Her blood pressures also elevated says she is taking clonidine. No shortness of breath or chest pain. No nausea or vomiting. However not eating much. No palpitations. Keep in ICU at this time until rhabdomyolysis improved 05-09 The patient is in bed she appears in not acute distress at this time. Patient complains of some back pain stomach pain radiated to the back. No nausea or vomiting she is able to eat. Was able to sit in the chair without any problems. No much of muscle pains and aches. No fever or chills. 05-10 The patient was seen earlier today Doesn't appear in acute distress. Has muscle pain, however CPK is improving No n/v/d/c. Not eatign much encourage PO intake and hydration Also family did visit later 05-11 CLEARED FOR DC NO BED AVAILABLE 05-12 Patient is pleasant to speak with, she is here under Pack act for intentional overdose. She has been medically cleared for transfer to psych, though no beds have been available lately. She seems to have good insight into her cascade of events, realizes her mistake, interested in accepting help and outpatient follow-up. 05-13 GOING TO INPT PSYCHIATRY TODAY WALDEMAR RN AND PT DS: Diagnosis - Discharge Diagnosis (1) Rhabdomyolysis Status: Acute (2) Major depressive disorder, recurrent severe without psychotic features Status: Acute (3) Cocaine abuse Status: Acute (4) Opiate abuse, continuous Status: Acute (5) Benzodiazepine abuse Status: Acute DS: Summary Hospital Course: 42-year-old female who was brought to the ER after being found unresponsive on her couch with emesis around her mouth. Patient reportedly has a history of overdose previously. When police arrived at her house patient was brought to the however was arousable and refusing any medical care. She was Pack acted and brought to the ER. She admitted to overdose on heroin/cocaine and Xanax which she had snorted. Her O2 sats were 84% on room air on arrival and improved to the 90s with nasal cannula 3 L. Patient was extremely lethargic however arousable following arrival in the ER. She had labs done in was initiated on BiPAP. Patient was accepted for admission by critical care medicine service. She was noted to be in renal failure with rhabdomyolysis. She is also complaining of left-sided chest pain posteriorly towards her back which she stated was going on for a few weeks. When I evaluated her in the ER she was drowsy though arousable tolerating BiPAP full face mask. Urine tox screen was pending at the time of my evaluation. SUBJ 05/06: Patient is awake alert sitting up in bed. Denies any shortness of breath however tearful. Admits to intentional overdose. Psych consult is pending at this time. CPK increased to 7000 today. Potassium is 4.9 I will change IV fluid to normal saline without potassium at 100 mL/h 10-16 patient has been transferred to our service today. From the critical care service. Patient still noted to have rhabdomyolysis Still needs to be on fluids Still needs a sitter Continue with IV fluids A.m. labs PT and OT to eval and treat Discussed with RN and patient 10-17 Complains of back pain. Her blood pressures also elevated says she is taking clonidine. No shortness of breath or chest pain. No nausea or vomiting. However not eating much. No palpitations. Keep in ICU at this time until rhabdomyolysis improved 10-18 The patient is in bed she appears in not acute distress at this time. Patient complains of some back pain stomach pain radiated to the back. No nausea or vomiting she is able to eat. Was able to sit in the chair without any problems. No much of muscle pains and aches. No fever or chills. 10-19 The patient was seen earlier today Doesn't appear in acute distress. Has muscle pain, however CPK is improving No n/v/d/c. Not eatign much encourage PO intake and hydration Also family did visit later 10-20 CLEARED FOR DC NO BED AVAILABLE 10-21 Patient is pleasant to speak with, she is here under Pack act for intentional overdose. She has been medically cleared for transfer to [facility], though no beds have been available lately. She seems to have good insight into her cascade of events, realizes her mistake, interested in accepting help and outpatient follow-up. 05-13 GOING TO INPT PSYCHIATRY TODAY DW RN AND PT - Time Spent with Patient Total time spent providing and/or coordinating discharge services: Greater than 30 minutes - Quality: VTE Deep Vein Thrombosis/Pulmonary Embolism Present on Admission: No Exam Vital signs: Vital Signs 05/12/18 12:00 05/12/18 12:42 05/12/18 13:00 Temperature Pulse Rate 59 L 75 76 Respiratory Rate 11 L 30 H 24 Blood Pressure 135/85 Pulse Oximetry 05/12/18 14:00 05/12/18 15:00 05/12/18 16:00 Temperature Pulse Rate 80 90 76 Respiratory Rate 22 43 H 18 Blood Pressure Pulse Oximetry 05/12/18 16:11 05/12/18 17:00 05/12/18 18:00 Temperature Pulse Rate 81 64 74 Respiratory Rate 30 H 28 H 37 H Blood Pressure 142/94 H Pulse Oximetry 05/12/18 19:00 05/12/18 20:00 05/12/18 20:06 Temperature 98.7 F Pulse Rate 64 69 66 Respiratory Rate 32 H 23 26 H Blood Pressure 138/86 138/86 Pulse Oximetry 95 94 L 05/12/18 21:00 05/12/18 22:00 05/12/18 23:00 Temperature Pulse Rate 65 67 73 Respiratory Rate 13 14 18 Blood Pressure Pulse Oximetry 90 L 93 L 93 L 05/13/18 00:00 05/13/18 00:01 05/13/18 00:32 Temperature 98.5 F Pulse Rate 80 80 Respiratory Rate 37 H 23 18 Blood Pressure 133/88 133/88 Pulse Oximetry 96 92 L 05/13/18 01:00 05/13/18 02:00 05/13/18 03:00 Temperature Pulse Rate 63 60 58 L Respiratory Rate 13 14 13 Blood Pressure Pulse Oximetry 95 94 L 96 05/13/18 04:00 05/13/18 05:00 05/13/18 06:00 Temperature 98.5 F 98.4 F Pulse Rate 60 62 55 L Respiratory Rate 13 13 13 Blood Pressure 132/83 Pulse Oximetry 96 97 95 05/13/18 06:29 05/13/18 07:00 05/13/18 08:00 Temperature 97.6 F Pulse Rate 67 62 60 Respiratory Rate 46 H 15 16 Blood Pressure 132/83 Pulse Oximetry 97 96 96 05/13/18 09:01 05/13/18 09:04 05/13/18 10:00 Temperature Pulse Rate 91 H 83 72 Respiratory Rate 14 16 23 Blood Pressure 135/95 H Pulse Oximetry Intake & Output 05/12/18 05/13/18 05/13/18 18:59 06:59 18:59 Intake Total 480 / 480 Balance 480 / 480 Weight 76 kg Intake: Oral 480 / 480 Other: # Voids 5 4 Date of Last Bowel Movement 05/12/18 05/11/18 # Bowel Movements 1 Narrative: GENERAL: AAOx3, no acute distress SKIN: Warm and dry. No rashes HEAD: Atruamtic, normocephalic. EYES: No scleral icterus. No injection or drainage. ENT: Moist mucous membranes, patent nares, no erythema of oropharynx. NECK: Supple, trachea midline. No JVD or lymphadenopathy. Normal thyroid. CARDIOVASCULAR: Regular rate and rhythm. No murmurs, gallops, or rubs. RESPIRATORY: Breath sounds clear equal bilaterally. No crackles or wheezes. No accessory muscle use. GASTROINTESTINAL: Abdomen soft, non-tender, nondistended, normal active bowel sounds MUSCULOSKELETAL: No cyanosis, or edema. NEURO: CN II-XII grossly intact, no focal deficits, no slurring of speech Results Procedures completed during hospitalization: none Completed studies during hospitalization: Laboratory Results WBC 4.6 th/mm3 (4.0-11.0) 05/08/18 05:45 RBC 3.97 mil/mm3 (4.00-5.30) L 05/08/18 05:45 Hgb 12.4 gm/dL (11.6-15.3) 05/08/18 05:45 Hct 36.0 % (35.0-46.0) 05/08/18 05:45 MCV 90.8 fL (80.0-100.0) 05/08/18 05:45 MCH 31.3 pg (27.0-34.0) 05/08/18 05:45 MCHC 34.5 % (32.0-36.0) 05/08/18 05:45 RDW 13.8 % (11.6-17.2) 05/08/18 05:45 Plt Count 161 th/mm3 (150-450) 05/08/18 05:45 MPV 7.9 fL (7.0-11.0) 05/08/18 05:45 Neut % (Auto) 63.4 % (16.0-70.0) 05/08/18 05:45 Lymph % (Auto) 28.0 % (9.0-44.0) 05/08/18 05:45 Vance % (Auto) 6.6 % (0.0-8.0) 05/08/18 05:45 Eos % (Auto) 1.1 % (0.0-4.0) 05/08/18 05:45 Baso % (Auto) 0.9 % (0.0-2.0) 05/08/18 05:45 Neut # (Auto) 2.9 th/mm3 (1.8-7.7) 05/08/18 05:45 Lymph # (Auto) 1.3 th/mm3 (1.0-4.8) 05/08/18 05:45 Vance # (Auto) 0.3 th/mm3 (0.0-0.9) 05/08/18 05:45 Eos # (Auto) 0.1 th/mm3 (0.0-0.4) 05/08/18 05:45 Baso # (Auto) 0.0 th/mm3 (0.0-0.2) 05/08/18 05:45 WBC Differential . 05/08/18 05:45 Differential Comment Auto diff final 05/08/18 05:45 D-Dimer Quant (PE/DVT) 4.24 mg/L FEU (0.00-0.50) H 05/05/18 20:23 Puncture Site Right brachial 05/05/18 20:35 Patient Temperature 98.6 05/05/18 20:35 O2 Saturation 92 % (90-100) 05/05/18 20:35 ABG pH 7.24 (7.380-7.420) L* 05/05/18 20:35 ABG pCO2 56 mmHg (38-42) H* 05/05/18 20:35 ABG pO2 78 mmHg (61-120) 05/05/18 20:35 ABG HCO3 23 mmol/L (22-26) 05/05/18 20:35 ABG O2 Content 17.7 Vol % (12.0-20.0) 05/05/18 20:35 ABG Base Excess -3.4 mmol/L (-2-2) L 05/05/18 20:35 ABG Methemoglobin 0.9 % (0-2) 05/05/18 20:35 Hemoglobin 13.7 G/DL (12.0-16.0) 05/05/18 20:35 Carboxyhemoglobin 2.5 % (0-4) 05/05/18 20:35 O2 Delivery Device Nasal cannula 05/05/18 20:35 Liter Flow 2.00 L/M 05/05/18 20:35 Critical Value Yes 05/05/18 20:35 Sodium 142 meq/L (136-145) 05/13/18 05:27 Potassium 3.3 meq/L (3.5-5.1) L 05/13/18 05:27 Chloride 104 meq/L (98-107) 05/13/18 05:27 Carbon Dioxide 29.6 meq/L (21.0-32.0) 05/13/18 05:27 Anion Gap 8 meq/L (5-15) 05/13/18 05:27 BUN 11 mg/dL (7-18) 05/13/18 05:27 Creatinine 0.76 mg/dL (0.50-1.00) 05/13/18 05:27 Estimated GFR 83 mL/min (>89) L 05/13/18 05:27 Random Glucose 84 mg/dL (74-106) 05/13/18 05:27 Hemoglobin A1c 5.5 % (4.3-6.0) 05/08/18 05:45 Lactic Acid 1.2 mmol/L (0.4-2.0) 05/06/18 04:38 Calcium 8.6 mg/dL (8.5-10.1) 05/13/18 05:27 Phosphorus 1.6 mg/dL (2.5-4.9) L 05/08/18 05:45 Magnesium 2.1 mg/dL (1.5-2.5) 05/08/18 05:45 Total Bilirubin 0.5 mg/dL (0.2-1.0) 05/13/18 05:27 AST 54 U/L (15-37) H 05/13/18 05:27 ALT 76 U/L (10-53) H 05/13/18 05:27 Alkaline Phosphatase 71 U/L (45-117) 05/13/18 05:27 Total Creatine Kinase 428 U/L (26-192) H 05/13/18 05:27 CK-MB (CK-2) Less than 1.0 ng/mL (0.5-3.6) 05/13/18 05:27 CK-MB (CK-2) % 0.2 % (0.0-4.0) 05/13/18 05:27 Troponin I Less than 0.02 ng/mL (0.02-0.05) L 05/05/18 19:45 Total Protein 6.8 g/dL (6.4-8.2) D 05/13/18 05:27 Albumin 3.5 g/dL (3.4-5.0) 05/13/18 05:27 Lipase 167 U/L (73-393) 05/10/18 05:05 TSH 0.857 uIU/mL (0.358-3.740) 05/07/18 06:33 Free T4 0.81 ng/dL (0.76-1.46) 05/08/18 05:45 Beta HCG, Qual Less than 1.0 mIU/mL (0-5) 05/05/18 19:45 Urine Color Yellow (Yellw/Straw) 05/05/18 21:44 Urine Clarity Hazy (Clear) H 05/05/18 21:44 Urine pH 5.0 (5.0-8.5) 05/05/18 21:44 Ur Specific Merom 1.019 (1.002-1.035) 05/05/18 21:44 Urine Protein 100 mg/dL (Neg-Trace) H 05/05/18 21:44 Urine Glucose (UA) Negative mg/dL (Negative) 05/05/18 21:44 Urine Ketones Trace mg/dL (Negative) H 05/05/18 21:44 Urine Occult Blood Large (Negative) H 05/05/18 21:44 Urine Nitrate Negative (Negative) 05/05/18 21:44 Urine Bilirubin Negative (Negative) 05/05/18 21:44 Urine Urobilinogen Less than 2 mg/dL (Less than 2) 05/05/18 21:44 Ur Leukocyte Esterase Negative (Negative) 05/05/18 21:44 Urine RBC 4 /hpf (0-3) H 05/05/18 21:44 Urine WBC 5 /hpf (0-5) 05/05/18 21:44 Ur Squamous Epith Cells 1 /hpf (0-5) 05/05/18 21:44 Amorphous Sediment Few /hpf (None) H 05/05/18 21:44 Hyaline Casts 3 /lpf (0-3) 05/05/18 21:44 Urine Mucus Few /lpf (Occasional) H 05/05/18 21:44 Micro UA Comment Cath-culture not ind 05/05/18 21:44 Ur Microscopic Review Not Reportable 05/05/18 21:44 Urine Culture Comments Cath-cult not ind 05/05/18 21:44 Nasal Screen MRSA (PCR) Not detected (Negative) 05/05/18 22:52 Salicylates 2.5 mg/dL (2.8-20.0) L 05/05/18 19:45 Urine Opiates Screen Neg (Neg) 05/05/18 21:44 Acetaminophen Less than 2.0 mcg/mL (10.0-30.0) L 05/05/18 19:45 Ur Barbiturates Screen Neg (Neg) 05/05/18 21:44 Ur Amphetamines Screen Neg (Neg) 05/05/18 21:44 U Benzodiazepines Scrn Pos (Neg) H 05/05/18 21:44 Urine Cocaine Screen Pos (Neg) H 05/05/18 21:44 U Cannabinoids Screen Neg (Neg) 05/05/18 21:44 Serum Alcohol Less than 3 mg/dL (0-5) 05/05/18 19:[address] 05/05/18 00:00 CONCLUSION: 1. Negative for an acute process. . Chest X-Ray 05/05/18 19:29 CONCLUSION: Under aerated with mild interstitial edema. Chest CT 05/05/18 21:40 CONCLUSION: 1. Asymmetrical apical pleural thickening 2. Lack of intravenous contrast makes detection of subtle pulmonary emboli difficult. Pulmonary Perfusion Imaging 05/06/18 00:00 CONCLUSION: 1. Low probability VQ scan. Venous Doppler Study 05/06/18 00:00 CONCLUSION: 1. The study is negative for bilateral lower extremity deep venous thrombosis. Labs on day of discharge: Labs from last 24 hours 05/13/18 05:27 Sodium 142 Potassium 3.3 L Chloride 104 Carbon Dioxide 29.6 Anion Gap 8 BUN 11 Creatinine 0.76 Estimated GFR 83 L Random Glucose 84 Calcium 8.6 Total Bilirubin 0.5 AST 54 H ALT 76 H Alkaline Phosphatase 71 Total Creatine Kinase 428 H CK-MB (CK-2) Less than 1.0 CK-MB (CK-2) % 0.2 Total Protein 6.8 D Albumin 3.5 - Impressions ITS Impressions Head CT 05/05/18 00:00 CONCLUSION: 1. Negative for an acute process. . Chest X-Ray 05/05/18 19:29 CONCLUSION: Under aerated with mild interstitial edema. Chest CT 05/05/18 21:40 CONCLUSION: 1. Asymmetrical apical pleural thickening 2. Lack of intravenous contrast makes detection of subtle pulmonary emboli difficult. Pulmonary Perfusion Imaging 05/06/18 00:00 CONCLUSION: 1. Low probability VQ scan. Venous Doppler Study 05/06/18 00:00 CONCLUSION: 1. The study is negative for bilateral lower extremity deep venous thrombosis. Discharge Plan - Discharge Disposition Patient Disposition: 63 Disc To [facility] Facility - Discharge Condition Condition: Good - Discharge Order Discharge Orders: Discharge Order (Routine); Ordered 05/11/18 Ordered By: Branden Castorena Hospitalist Clear for Discharge (Routine); Ordered 05/11/18 Ordered By: Branden Castorena - Discharge Details Anticipated Discharge Date: 05/13/18 Discharge Comment: Continue generous PO fluids for tail end treatment of rhabdomyolysis. Follow CK. - Physicians Team Primary Care Provider: UNKNOWN, Attending Provider: Juan Grayson Other Providers: Ramesh Joyce MD ; Ava Palomo MD
== END 2018-05-13 11:46 ==
LOC: NEPC 19:02 → NEDA 21:24 → HIMC 22:25
PROVIDERS: ADMIT Hospitalist; ATTEND Hospitalist

== ENCOUNTER 2018-05-13 11:58 | Inpatient (IN) ==
[2018-05-13] MEDS ORDERED: Acetaminophen 325 MG Tablet PO PRN (13:36)
[2018-05-13] MEDS ORDERED: Bisacodyl 10 MG Supp RECTAL PRN (13:36)
[2018-05-13] MEDS ORDERED: Aluminum/Magnesium/Simethacone Susp 30 ML UDC PO PRN (13:36)
[2018-05-13] MEDS ORDERED: Senna/Docusate Sodium 8.6/50 MG Tablet PO PRN (13:36)
[2018-05-13] MEDS: Famotidine 20 MG Tablet PO SCH (21:12)
[2018-05-14 07:15] LABS: Alanine Aminotransferase 68 U/L (10-53); Albumin 3.6 g/dL (3.4-5.0); Anion Gap 8 meq/L (5-15); Aspartate Aminotransferase 35 U/L (15-37); Blood Urea Nitrogen 13 mg/dL (7-18); Carbon Dioxide 27.2 meq/L (21.0-32.0); Chloride 103 meq/L (98-107); Glomerular Filtration Rate 73 mL/min (>89); Glucose,Random 96 mg/dL (74-106); Potassium 3.7 meq/L (3.5-5.1); Sodium 138 meq/L (136-145)
[2018-05-14 07:16] LABS: Cholesterol 202 mg/dL (120-200)
[2018-05-14 07:26] LABS: Alkaline Phosphatase 74 U/L (45-117); Chol/HDL Ratio 4.74 Ratio; Creatine Kinase 229 U/L (26-192); HDL Cholesterol 42.6 mg/dL (40.0-60.0); LDL Cholesterol,Calculated 130 mg/dL (0-99); Total Protein 7.3 g/dL (6.4-8.2); Triglycerides 149 mg/dL (42-150)
[2018-05-14 07:40] LABS: CKMB Percent 0.4 % (0.0-4.0)
[2018-05-14] MEDS: amLODIPine 5 MG Tablet PO SCH (08:18)
[2018-05-14] MEDS: Famotidine 20 MG Tablet PO SCH ×2 (08:19→21:58)
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
[2018-05-14] MEDS: Sertraline 50 MG Tablet PO SCH (10:24)
--- NOTE | 2018-05-14 13:26 | P.CON ---
History of Present Illness Service: Hospitalist Consult date: 05/14/18 Requesting Physician: Wood Kraus Reason for Consult: Medical management Primary Care Provider: UNKNOWN Chief Complaint: Left lower abdominal pain History of Present Illness: Patient is a 42-year-old female who recently transferred to the psychiatric unit after receiving medical care due to overdose. Patient admitted to overdosing on heroin, cocaine and Xanax. While hospitalized for overdose she experienced hypoxia requiring BiPAP as well as ANGELA/rhabdo. She tells me that she feels much better. Does have some nagging left lower quadrant abdominal pain. She reports having had no periods for over 4 years. test on 05/05/18 was negative. No history of pelvic surgery. Does report some intermittent constipation; has not recently had a bowel movement. No chest pain or shortness of breath. No nausea or vomiting or diarrhea. She has been tolerating her meals. Review of Systems All other systems reviewed negative except as stated in HPI PMFSH - History History Provided By: Patient, Medical Record - Medical History Medical History: Medical History (Last Reviewed 05/14/18 @ 13:22 by KEYA Calderon) Chronic neck pain Depression Hypertension - Surgical History Surgical History: Surgical History (Last Reviewed 05/14/18 @ 13:22 by KEYA Calderon) H/O cervical discectomy History of tubal ligation - Family History Family History: Family History (Last Reviewed 05/14/18 @ 13:22 by KEYA Calderon) Other Family history non-contributory - Social History I have reviewed the patient's Social History: Yes - Tobacco History Second Hand Smoke Exposure: Yes Tobacco Use In Past 30 Days: Yes Smoking Status: Current every day smoker Tobacco Type: Cigarettes - Alcohol History How Often Do You Have a Drink Containing Alcohol: 4 or more times a week - Substance Use History Substance History: Active Abuse - Substance Use Type Other Status: Active Comment: Patient reports that she smokes a pack of cigarettes each day and also reports active use of various substances, heroine, cocaine, opiates (reportedly no longer uses) "and some other stuff". - Travel History Recent Travel in the [facility] Within the Last 8 Weeks: No Recent Travel Out of the Country Within the Last 8 Weeks: No Medications and Allergies Active Medications: Active Medications Acetaminophen (Tylenol) 650 mg PO Q4H PRN PRN Reason: Pain 1-5 or Temp >101F Al Hydrox/Mg Hydrox/Simethicone (Mag-Al Plus Susp Liq) 30 ml PO Q6H PRN PRN Reason: DYSPEPSIA Al Hydroxide/Mg Hydroxide (Milk Of Magnesia Liq) 30 ml PO Q12H PRN PRN Reason: Mild Constipation Amlodipine Besylate (Norvasc) 5 mg PO DAILY [facility] Last Admin: 05/14/18 08:18 Dose: 5 mg Diphenhydramine HCl (Benadryl) 50 mg PO HS PRN PRN Reason: INSOMNIA Famotidine (Pepcid) 10 mg PO BID [facility] Last Admin: 05/14/18 08:19 Dose: Not Given Hydroxyzine HCl (Atarax) 50 mg PO Q6H PRN PRN Reason: ANXIETY Miscellaneous (Pill Splitter) 1 each OTHER UNSCH PRN PRN Reason: SEE LABEL COMMENTS Nicotine (Habitrol 14 Mg Patch.24 Hr) 1 patch T-DERMAL DAILY [facility] Last Admin: 05/14/18 08:18 Dose: 1 patch Prazosin HCl (Minipress) [address] [facility] Sertraline HCl (Zoloft) 50 mg PO DAILY [facility] Last Admin: 05/14/18 10:24 Dose: 50 mg Allergies Allergy/AdvReac Type Severity Reaction Status Date / Time penicillin G Allergy Severe Anaphylaxis Unverified 06/28/17 16:29 Physical Exam Vital signs: Vital Signs 05/14/18 05:48 Temperature 98.2 F Pulse Rate 66 Respiratory Rate 16 Blood Pressure 121/77 Pulse Oximetry 95 Intake & Output 05/13/18 05/14/18 05/14/18 18:59 06:59 18:59 Weight 74.1 kg Other: Weight On Admission 74.1 kg Narrative: GENERAL: Well-nourished, well-developed adult female in no obvious distress. SKIN: Warm and dry. HEAD: Atraumatic. Normocephalic. CARDIOVASCULAR: Regular rate and rhythm. RESPIRATORY: No accessory muscle use. Clear to auscultation. Breath sounds equal bilaterally. GASTROINTESTINAL: Abdomen soft, non-tender, non-distended. Positive bowel sounds. MUSCULOSKELETAL: Extremities without clubbing, cyanosis, or edema. No obvious deformities. NEUROLOGICAL: Awake and alert. No obvious cranial nerve deficits. Motor grossly within normal limits. Normal speech. Assessment and Plan - Plan 42-year-old female recently admitted for overdose. Hospitalist service consulted for assistance in medical. Depression/overdose -Managed by psychiatry Lower left quadrant abdominal pain -Likely constipation; add laxative; if not resolved consider imaging Hypertension -Restart home Norvasc Discussed with: Patient, RN Thank you for this consult. We appreciate the opportunity to assist you with the medical management of this patient.
--- NOTE | 2018-05-14 14:34 | ECG ---
Date Performed: 05/14/2018 Time Performed: 13:38:40 PTAGE: 42 years EKG: Sinus rhythm NORMAL ECG No significant change from prior electrocardiogram. PREVIOUS TRACING : 05/13/2018 18.42 DOCTOR: Latrell Morley Interpretating Date/Time 05/14/2018 14:33:04
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
[2018-05-14 16:48] LABS: Hemoglobin A1c 5.3 % (4.3-6.0)
[2018-05-14] MEDS ORDERED: Prazosin HCl 1 MG Capsule PO SCH (21:00)
[2018-05-15 05:54] VITALS: BP 115/75; PULSE 76; RESP 16; TEMP 97.6; O2SAT 96
[2018-05-15] MEDS: amLODIPine 5 MG Tablet PO SCH (09:12)
[2018-05-15] MEDS: Famotidine 20 MG Tablet PO SCH (09:12)
[2018-05-15] MEDS: Sertraline 50 MG Tablet PO SCH (09:12)
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
--- NOTE | 2018-05-15 13:15 | P.PN ---
Subjective Interval history: Patient is seen sitting in room. Continues to have some constipation. She did try some stool softener but it has not helped. She is interested in trying something stronger. Denies any nausea or vomiting. No diarrhea. Physical Exam Vital signs: Vital Signs 05/14/18 17:27 05/15/18 05:52 Temperature 98.7 F 97.6 F Pulse Rate 86 76 Respiratory Rate 18 16 Blood Pressure 134/89 115/75 Pulse Oximetry 98 96 Narrative: GENERAL: Well-nourished, well-developed adult female in no obvious distress. SKIN: Warm and dry. HEAD: Atraumatic. Normocephalic. CARDIOVASCULAR: Regular rate and rhythm. RESPIRATORY: No accessory muscle use. Clear to auscultation. Breath sounds equal bilaterally. GASTROINTESTINAL: Abdomen soft, non-tender, non-distended. Positive bowel sounds. MUSCULOSKELETAL: Extremities without clubbing, cyanosis, or edema. No obvious deformities. NEUROLOGICAL: Awake and alert. No obvious cranial nerve deficits. Motor grossly within normal limits. Normal speech. Results - Labs CBC & Chem 7: 05/14/18 06:25 Laboratory Results - last 24 hr 05/14/18 05/14/18 06:25 10:57 Hemoglobin A1c 5.3 Prolactin 5.6 Assessment and Plan - Plan 42-year-old female recently admitted for overdose. Hospitalist service consulted for assistance in medical management. Depression/overdose -Managed by psychiatry Lower left quadrant abdominal pain -Likely constipation; add laxative; if not resolved consider imaging -Encourage fluids Hypertension -Restart home Norvasc Discussed with: Patient, RN Hospitalist service will sign off. Patient appears to be medically stable at this point in time. Please reconsult if necessary.
--- NOTE | 2018-05-16 01:47 | ECG ---
Date Performed: 05/13/2018 Time Performed: 18:42:21 PTAGE: 42 years EKG: Sinus rhythm NONSPECIFIC ST & T-WAVE ABNORMALITY BORDERLINE ECG PREVIOUS TRACING : 05/05/2018 19.38 Since the previous tracing, no significant change noted DOCTOR: Boby Haile Interpretating Date/Time 05/16/2018 01:47:00
== END 2018-05-15 12:40 | disposition home or self-care (01) ==
LOC: H260 11:58
PROVIDERS: ADMIT Psychiatry & Neurology Psychiatry; ATTEND Psychiatry & Neurology Psychiatry